=== PATIENT | male | born 1965 | race Caucasian/White ===

== ENCOUNTER 2022-11-12 14:14 | Outpatient (CLI) | payer OTHER, SELFPAY ==
--- NOTE | ~2022-11-12 | US_ITS ---
US arterial ankle brachial ind INDICATION: Bilateral atherosclerosis. TECHNIQUE: Segmental pressures and plethysmographic and Doppler waveforms of the brachial and lower e xtremity arteries were obtained. COMPARISON: None. FINDINGS: Right and left brachial artery pressures of 143 mm Hg and 139 mm Hg, respectively, are concordant (no rmal difference <= 30 mmHg). The right ankle-brachial index (TWILA) is 1.29 (normal >= 0.9-1.0). The right great toe-brachial index (TBI) is 0.83 (normal >= 0.60). The left TWILA is 1.21. The left TBI is 1.2. IMPRESSION: 1. Normal bilateral ankle-brachial indices. Reviewed, dictated and finalized at location [facility].
== END 2022-11-12 14:15 | disposition home or self-care (01) ==
PROVIDERS: PCP Physician Assistant
DX: I70.203 Unspecified atherosclerosis of native arteries of extremities, bilateral legs (principal)
CPT/HCPCS: 93922

== ENCOUNTER 2022-12-02 15:38 | Outpatient (CLI) | payer OTHER, SELFPAY ==
--- NOTE | ~2022-12-02 | XR_ITS ---
Left Shoulder Technique: AP and scapular Y views were obtained. Clinical History: Pain Findings: No fracture or dislocation is seen. Osseous alignment is anatomic. The glenohumeral and acr omioclavicular joint spaces are preserved. Soft tissues are unremarkable. Impression: Unremarkable left shoulder radiographs. Reviewed, dictated and finalized at [facility]. Impression: Unremarkable left shoulder radiographs.
== END 2022-12-02 15:39 | disposition home or self-care (01) ==
LOC: ANHIMG 15:41
PROVIDERS: PCP Physician Assistant; Visit Provider Physician Assistant
DX: M25.512 Pain in left shoulder (principal)
CPT/HCPCS: 73030

== ENCOUNTER 2023-12-11 10:11 | Emergency (ER) | payer OTHER, SELFPAY ==
[2023-12-11 10:18] VITALS: BP 155/88; PULSE 80; RESP 16; TEMP 37.3; O2SAT 98
--- NOTE | 2023-12-11 10:22 | ED.EAR ---
HPI - Ear Problem General Chief complaint: Ear Stated complaint: Ears Irritation Time Seen by Provider: 12/11/23 10:20 Source: patient, RN notes reviewed and old records reviewed Mode of arrival: ambulatory Limitations: no limitations History of Present Illness HPI Narrative: 58-year-old male presents to the [facility] requesting to have his ears cleaned out. Reports decreased hearing. Worse on the left than the right. States that he has been using Q-tips and trying to pull the stuff out. Related Data Home Medications Medication Instructions Recorded Confirmed allopurinol 300 mg tablet mg 12/11/23 amitriptyline 25 mg tablet mg 12/11/23 amlodipine 10 mg tablet mg 12/11/23 12/11/23 aspirin 81 mg tablet,delayed mg 12/11/23 release carvedilol 6.25 mg tablet mg 12/11/23 cetirizine 10 mg tablet mg 12/11/23 epinephrine 0.3 mg/0.3 mL 12/11/23 injection, auto-injector famotidine 20 mg tablet mg 12/11/23 gabapentin 300 mg capsule mg 12/11/23 hydralazine 25 mg tablet mg 12/11/23 ibuprofen 600 mg tablet mg 12/11/23 losartan 100 mg tablet mg 12/11/23 metformin 500 mg tablet mg 12/11/23 pravastatin 80 mg tablet mg 12/11/23 Allergies Allergy/AdvReac Type Severity Reaction Status Date / Time bee venom protein (honey bee) Allergy Severe Anaphylaxis Verified 12/11/23 10:29 [bees] Review of Systems Review of Systems: All systems reviewed & are unremarkable except as noted in HPI and below Constitutional: Constitutional: Reports no additional constitutional complaints Eyes: Eyes: Reports no additional eye complaints ENT: Reports as per HPI Cardiovascular: Cardiovascular: Reports no additional cardiovascular complaints, Denies chest pain and Denies dyspnea Respiratory: Respiratory: Reports no additional respiratory complaints, Denies chest congestion, Denies cough and Denies dyspnea Gastrointestinal: Gastrointestinal: Reports no additional gastrointestinal complaints, Denies abdominal pain, Denies nausea and Denies vomiting Musculoskeletal: Musculoskeletal: Reports no additional musculoskeletal complaints Integumentary/Breasts: Skin/Breast: Reports system reviewed and no additional complaints, except as docu Neurologic: Reports system reviewed and no additional complaints, except as documented Psychiatric: Psychiatric: Reports no additional psychiatric complaints Allergic/Immunologic: Allergic/Immunologic: Reports no additional allergic/immunologic complaints PMFSH Comments At the time of my signature, I reviewed and agree with the nursing past medical, surgical, social, and family history. There is no relevant family history pertinent to the patient complaint. Exam Const: General: cooperative, comfortable, no acute distress, well developed, alert and well nourished Nutritional Appearance: well nourished Orientation/consciousness: patient oriented x3 Limitations: no limitations HENMT: Head: normal to inspection Ears: hearing grossly normal bilaterally, external ears normal and Abnormal EAC present cerumen impaction bilateral Face/Nose/Sinus: Normal external nose present, Normal nares present, Normal nasal mucous membranes and turbinates present, normal facial exam and face symmetric Face and sinus: normal facial exam and face symmetric Eyes: General: appearance normal, both eyes and all related structures Alignment and Position: alignment normal Periorbital: periorbital findings normal Neck: Neck: normal visual inspection, full ROM, no lymphadenopathy and no meningeal signs Chest: Chest palpation & inspection: normal inspection of the chest Resp: Effort & Inspection: normal respiratory effort and able to speak in complete sentences Auscultation: clear to auscultation bilaterally, no crackles, no rales, no rhonchi and no wheezes Cardio: Rate: regular rate Rhythm: regular rhythm Skin: General skin exam: normal color and no rashes or lesions noted Lesions: no lesions Rashes: no rashes
[2023-12-11 10:29] VITALS: BP 155/88; PULSE 80; RESP 16; TEMP 37.3; O2SAT 98
--- NOTE | 2023-12-11 10:30 | PC.NURSE ---
STREET AND BUILDING DECORATOR CALLED OUT FOR HELP WHILE IN WITH PT FOR EAR IRRIGATION. STREET AND BUILDING DECORATOR STATES THAT PT BECAME CLAMMY & C/O DIZZINESS PRIOR TO PASSING OUT IN CHAIR WITH STREET AND BUILDING DECORATOR AT SIDE. PT A&O WITHIN 30 SECONDS, VITALS & FSBG CHECKED AND WNL. EAR IRRIGATION NOT CONTINUED. PT SISTER AT , VERBALIZED UNDERSTANDING TO PUSH CALL LIGHT FOR ANY CONCERNS.
[2023-12-11 10:33] VITALS: BP 139/86; PULSE 80; RESP 16; O2SAT 96
[2023-12-11 10:34] LABS: Glucose Point of Care 103 mg/dl (65-105)
== END 2023-12-11 10:42 | disposition home or self-care (01) ==
PROVIDERS: Emergency Provider Nurse Practitioner; PCP Physician Assistant
DX: H61.23 Impacted cerumen, bilateral (principal); R55 Syncope and collapse; E78.00 Pure hypercholesterolemia, unspecified; I10 Essential (primary) hypertension; E11.40 Type 2 diabetes mellitus with diabetic neuropathy, unspecified
CPT/HCPCS: 82948; 99212; G0463

== ENCOUNTER 2024-06-06 13:51 | Outpatient (CLI) | payer OTHER, SELFPAY ==
--- OUTSIDE RECORDS SUMMARY | 2024-06-06 15:37 | XMS_ITS | Clinical Summary ---
Author Organization [facility] Address [facility] [place] [address] Care Team Providers Care [employer] Worker Foreman Name Role Phone Sarah Penn MD Unavailable [phone] Vielka Abernathy PA-C Primary Care Provider [phone] Allergies Active Allergy Reactions Criticality Noted Date Comments Bee Venom Anaphylaxis High 02/23/2017 Medications allopurinol 300 MG tablet Take 1 tablet by mouth daily. 08/12/2012 Active amlodipine 10 MG tablet Take 1 tablet by mouth daily. 08/12/2012 Active aspirin EC 325 MG EC tablet Take 1 tablet by mouth daily. 08/12/2012 Active losartan 100 MG tablet Take 1 tablet by mouth daily. 08/12/2012 Active metFORMIN 500 MG tablet Take 1 tablet by mouth daily. 08/12/2012 Active cetirizine 10 MG tablet Take 1 tablet (10 mg total) by mouth daily. 02/24/2017 Active Cholecalciferol (KP VITAMIN D) 1000 UNITS capsule Take 1 capsule (1,000 Units total) by mouth daily. 02/24/2017 Active gabapentin 300 MG capsule Take 1 capsule (300 mg total) by mouth 3 (three) times daily. 02/24/2017 Active pravastatin 40 MG tablet Take 1 tablet (40 mg total) by mouth daily. 02/24/2017 Active Multiple Vitamins-Minera ls (CENTRUM) Tab Take 1 tablet by mouth daily. 02/24/2017 Active omega-3 fatty acid 1000 MG capsule Take 1 capsule (1,000 mg total) by mouth daily. VERIFY DOSE 02/24/2017 Active hydrALAZINE 25 MG tablet Take 1 tablet (25 mg total) by mouth 2 (two) times daily. 02/24/2017 Active ibuprofen 400 MG tablet Take 400 mg by mouth nightly at bedtime. 02/24/2017 Active carvedilol 6.25 MG tablet Take 1 tablet (6.25 mg total) by mouth 2 (two) times daily. 60 tablet 6 02/16/2018 Active amitriptyline 25 MG tablet Take 1 tablet by mouth nightly at bedtime. 05/12/2018 Active Ferrous Sulfate (IRON) 325 (65 Fe) MG tablet Take 325 mg by mouth daily with breakfast. Active Garlic 1000 MG capsule Take 1,000 mg by mouth daily. Active EPINEPHrine 0.3 MG/0.3ML injection as needed. 09/14/2019 Active Active Problems Problem Noted Date Diagnosed Date Class 3 severe obesity with body mass index (BMI) of 40.0 to 44.9 in adult 07/24/2017 Precordial chest pain 02/24/2017 Mixed hyperlipidemia 02/24/2017 Essential hypertension 02/24/2017 Type 2 diabetes mellitus wit hout complication ([facility]) 02/24/2017 Vasovagal syncope 02/23/2017 Resolved Problems Problem Noted Date Diagnosed Date Resolved Date Abnormal stress test 03/02/2017 018 Family History Medical History Relation Comments Diabetes Brother Hypertension Brother Valve Disease Brother atrial fibrillation Brother Alcohol Abuse Father Diabetes Father Hypertension Father Kidney Disease Father on dialysis Diabetes Maternal Grandmother Hypertension Maternal Grandmother Heart Attack Mother Hypertension Mother Stent Cardiac Mother Relation Status Comments Brother (Age 60) Father (Age 50) Maternal Grandfather Maternal Grandmother Mother Paternal Grandfather Paternal Grandmother Sister 1 Alive Sister 2 Alive Social History Tobacco Use Types Packs/Day Years Used Date Smoking Tobacco: Every Day Cigarettes Smokeless Tobacco: Never Comments:pack will last 4 wk s. Alcohol Use Standard Drinks/Week Comments No 0 (1 standard drink = 0.6 oz pur e alcohol) Sex and Gender Information Value Date Recorded Sex Assigned at Not on file Legal Sex Male 3:02 AM CDT Gender Identity Not on file Sexual Orientation Not on file Occupation Industry Job Start Date Job End Date Not on file Not on file Not on file Not on file Last Filed Vital Signs Vital Sign Reading Time Taken Comments Blood Pressure 156/90 09/21/2019 1:20 PM CDT Pulse 70 09/21/2019 1:16 PM CDT reg Temperature - - Respiratory Rate - - Oxygen Saturation 96% 09/21/2019 12:52 PM CDT Inhaled Oxygen Concentration - - Weight 106.1 kg (234 lb) 09/21/2019 12:52 PM CDT Height 162.6 cm (5' 4 ) 09/21/2019 12:52 PM CDT Body Mass Index 40.17 09/21/2019 12:52 PM CDT Plan of Treatment Health Maintenance Due Date Last Done Comments Colorectal Cancer Screening Colonoscopy (10 Years) 1965 Kidney Health Evaluation 1965 Annual Physical 05/19/1966 Pneumococcal Vaccine: Pediatrics (0 to 5 Years) and At-Risk Patients (6 to 64 Years) (1 of 2 - PCV) 05/19/1969 Diabetes: Retinopathy Eye Exam 05/19/1981 Hepatitis C 05/19/1981 DTaP, Tdap and Td Vaccines (1 - Tdap) 05/19/1982 Zoster Vaccines (1 of 2) 05/19/2013 Hemoglobin A1C 08/07/2019 02/06/2019, 08/21, 08/27/2017, Additional history exists Lipid Panel 09/09/2019 09/08/2018, 060 10/2017, 08/25/2016, Additional history exists COVID-19 Vaccine ( - 2023- season) 2023 Influenza Adult (#1) 2023 RSV Immunization or 60+ Years (1 - 1-dose 75+ series) 05/19/2038 Meningococcal B Vaccine Aged Out No l onger eligible based on patient's age to complete this topic Meningococcal Vaccine Aged Out No yosi reynaldo eligible based on patient's age to complete this topic RSV Immunizations Under 20 Months Aged Out No longer eligible based on patient's age to complete this topic Procedures Procedure Name Priority Date/Time Associated Diagnosis Comments HEMOGLOBIN, GLYCOSYLATED Routine 02/06/2019 LIPID PANEL Routine 09/08/2018 from Last 3 Months or Most Recently Relevant to Health Maintenance Results * HEMOGLOBIN, GLYCOSYLATED (02/06/2019) HGB A1C 5.8 02/06/2019 [facility] Final Result * LIPID PANEL (09/08/2018) CHOLESTEROL 168 HDL 49 TRIGLYCERIDES 197 LDL (CALCULATED) 80 VLDL CALCULATION 39 09/08/2018 [facility] Final Result from Last 3 Months or Most Recently Relevant to Health Maintenance Insurance [employer] Care Teams Automotive Worker Foreman Relationship Specialty Start Date End Date Vielka Abernathy PA-C [address] [place] [id number] PCP - General NURSE PRACTITIONER 03/09/19 Sarah Penn MD [facility]. [facility] [address] [place] [address] [facility] [employer] Specialist CARDIOVASCULAR DISEASE 02/09/17
--- OUTSIDE RECORDS SUMMARY | 2024-06-06 15:37 | XMS_ITS | Data Portability ---
Author Organization GE RITAAmy Zhao Address [address] [place] [address] Care Team Providers Care Product Transfer Pumper Name Role Phone CHRIST ROJAS Primary Care Provider Assessment Encounter Date Assessment Date Assessment LastModified by Organization Details LastModified Time 03/02/2024 03/02/2024 follow up in 6 months Not available 03/02/2024 10:04:30 Plan of Treatment Reminders Order Date Submit Date Provider Last Modified By Organization Details Last Modified Time Details Appointments ANY 30 2024 08:30A M NILA CABRERA Not available Not available Not available Lab uric acid, serum or plasma 2023 024 MORENA KUHN, [facility] [address], [address], [place], [address], 03/03/2024 00:08:46 CMP, serum or plasma 2023 024 [facility] KUHN, [facility], [address], [place], [address], 03/03/2024 00:08:45 lipid panel, serum 2023 024 MORENA KUHN, [facility], [address], [place], [address], 03/03/2024 00:08:44 albumin/c reatinine , mass ratio, urine 2023 024 MORENA KUHN, [address] [facility] [address], [address], [place], [address], 03/03/2024 10:17:34 HbA1c (hemoglob in A1c), blood 2023 024 [facility], [address] [facility], [address], [place], [address], 03/03/2024 10:17:35 CMP, serum or plasma 2023 024 [facility], [address] [facility] [address], [address], [place], [address], 11/01/2023 22:07:[address] referral [address] (Audiology), [address] [place] [address], [address], 05/11/2024 08:15:13 Procedures None recorded. Surgeries None recorded. Imaging None recorded. Medication Orders Debrox 6.5 % ear drops [address], [address], [place], [place], [id number], 03/02/2024 10:02:23 Patient TargetsNo targets recorded. Patient Instructions Encounter Date Encounter Id Patient Instructions Last Modified By Organization Details Last Modified Time 12/09/2023 [id number] hammer toe: care instructions fharry Not available 12/09/2023 10:30:11 athlete's foot: care instructions fharry Not available 12/09/2023 10:30:11 04/26/2024 [id number] A healthy lifestyle: care instructions Not available 04/27/2024 09:51:20 Reason for Referral [employer] Referral for Hea ring loss Referring Physician: Christ Rojas, Retail Pharmacy Merchandiser, Encounter Date: 04/26/2024 Results Created Date Observation Date Name Description Value Unit Range Abnormal Flag Note LastModifiedBy Organization Detail LastModifiedTime 11/01/19 24 11/01/2023 COMP. METAB OLIC PANEL (14) glucose 120 mg/dL 70-99 above high normal Not Available [facility] [address] [place] [address], [address], 11/01/2023 22:07:42 11/01/19 24 11/01/2023 COMP. METAB OLIC PANEL (14) BUN 8 mg/dL 8-27 Not Available [facility] Department [address] [place] [address], [address], 11/01/2023 22:07:42 11/01/19 24 11/01/2023 COMP. METAB OLIC PANEL (14) creatinine 0.80 mg/dL 0.76-1 .27 Not Available [facility] Department [address] [place] [address], [address], 11/01/2023 22:07:42 11/01/19 24 11/01/2023 COMP. METAB OLIC PANEL (14) eGFR 101 >=60 Units for eGFR value s are mL/mi n/1.7 3 The eGFR Calcu latio n has not been valid ated for patie nts under the age of 18. If test resul ts are displ ayed for a patie nt under the age of 18, disre annie that value . Not Available [facility] Department [address] [place] [address], [address], 11/01/2023 22:07:42 11/01/19 24 11/01/2023 COMP. METAB OLIC PANEL (14) BUN/creatini ne ratio 10 10-24 Not Available [facility] Department [address] [place] [address], [id number], 11/01/2023 22:07:42 11/01/19 24 11/01/2023 COMP. METAB OLIC PANEL (14) sodium 138 mmol/ L 134-14 4 Not Available [facility] Department [address] [place] [address], [address], 11/01/2023 22:07:42 11/01/19 24 11/01/2023 COMP. METAB OLIC PANEL (14) potassium 4.3 mmol/ L 3.5-5. 2 Not Available [facility] [address] [place], [address], 11/01/2023 22:07:42 11/01/19 24 11/01/2023 COMP. METAB OLIC PANEL (14) chloride 102 mmol/ L 96-106 Not Available [facility] [address] [place], [address], 11/01/2023 22:07:42 11/01/19 24 11/01/2023 COMP. METAB OLIC PANEL (14) carbon dioxide, total 22 mmol/ L 20-29 Not Available [facility] [address] [place], [address], 11/01/2023 22:07:42 11/01/19 24 11/01/2023 COMP. METAB OLIC PANEL (14) calcium 9.4 mg/dL 8.6-10 .2 Not Available [facility] [address] [place], [address], 11/01/2023 22:07:42 11/01/19 24 11/01/2023 COMP. METAB OLIC PANEL (14) protein, total 7.3 g/dL 6.0-8. 5 Not Available [facility] [address] [place], [address], 11/01/2023 22:07:42 11/01/19 24 11/01/2023 COMP. METAB OLIC PANEL (14) albumin 4.5 g/dL 3.8-4. 9 Not Available [facility] [address] [place], [address], 11/01/2023 22:07:42 11/01/19 24 11/01/2023 COMP. METAB OLIC PANEL (14) globulin, total 2.8 g/dL 1.5-4. 5 Not Available [facility] [address] [place], [address], 11/01/2023 22:07:42 11/01/19 24 11/01/2023 COMP. METAB OLIC PANEL (14) A/G ratio 2.0 1.2-2. 2 Not Available [facility] [address] [place], [address], 11/01/2023 22:07:42 11/01/19 24 11/01/2023 COMP. METAB OLIC PANEL (14) bilirubin, total 0.3 mg/dL 0.0-1. 2 Not Available [facility] [address] [place], [address], 11/01/2023 22:07:42 11/01/19 24 11/01/2023 COMP. METAB OLIC PANEL (14) alkaline phosphatase 100 IU/L 44-121 Not Available [facility] Department [address] [place], [address], 11/01/2023 22:07:42 11/01/19 24 11/01/2023 COMP. METAB OLIC PANEL (14) AST (SGOT) 32 IU/L 0-40 Not Available [facility] Department [address] [place], [address], 11/01/2023 22:07:42 11/01/19 24 11/01/2023 COMP. METAB OLIC PANEL (14) ALT (SGPT) 48 IU/L 0-44 above high normal Not Available [facility] [address] [place], [address], 11/01/2023 22:07:42 03/02/20 24 03/02/2024 LIPID PANEL cholesterol, total 179 mg/dL 100-19 9 Not Available [facility] [address] [place] [address], [address], 03/03/2024 00:08:44 03/02/20 24 03/02/2024 LIPID PANEL triglyceride s 268 mg/dL 0-149 above high normal Not Available [facility] Department [address] [place] [address], [address], 03/03/2024 00:08:44 03/02/20 24 03/02/2024 LIPID PANEL HDL cholesterol 44 mg/dL 40-999 Not Available [facility] Department [address] [place] [address], [address], 03/03/2024 00:08:44 03/02/20 24 03/02/2024 LIPID PANEL VLDL cholesterol damion 54 mg/dL 5-40 above high normal Not Available [facility] Department [address] [place] [address], [address], 03/03/2024 00:08:44 03/02/20 24 03/02/2024 LIPID PANEL LDL chol calc (nih) 122 mg/dL 0-99 above high normal Not Available [facility] Department [address] [place] [address], [address], 03/03/2024 00:08:44 03/02/20 24 03/02/2024 COMP. METAB OLIC PANEL (14) glucose 150 mg/dL 70-99 above high normal Not Available [facility] [address] [place] [address], [address], 03/03/2024 00:08:45 03/02/20 24 03/02/2024 COMP. METAB OLIC PANEL (14) BUN 10 mg/dL 8-27 Not Available [facility] [address] [place] [address], [address], 03/03/2024 00:08:45 03/02/20 24 03/02/2024 COMP. METAB OLIC PANEL (14) creatinine 0.80 mg/dL 0.76-1 .27 Not Available [facility] [address] [place] [address], [address], 03/03/2024 00:08:45 03/02/20 24 03/02/2024 COMP. METAB OLIC PANEL (14) eGFR 101 >=60 Units for eGFR value s are mL/mi n/1.7 3 The eGFR Calcu latio n has not been valid ated for patie nts under the age of 18. If test resul ts are displ ayed for a patie nt under the age of 18, disre annie that value . Not Available [facility] [address] [place] [address], [address], 03/03/2024 00:08:45 03/02/20 24 03/02/2024 COMP. METAB OLIC PANEL (14) BUN/creatini ne ratio 13 01-12 Not Available [facility] Department [address] [place] [address], [address], 03/03/2024 00:08:45 03/02/20 24 03/02/2024 COMP. METAB OLIC PANEL (14) sodium 138 mmol/ L 134-14 4 Not Available [facility] [address] [place] [address], [address], 03/03/2024 00:08:45 03/02/20 24 03/02/2024 COMP. METAB OLIC PANEL (14) potassium 4.3 mmol/ L 3.5-5. 2 Not Available [facility] [address] [place] [address], [address], 03/03/2024 00:08:45 03/02/20 24 03/02/2024 COMP. METAB OLIC PANEL (14) chloride 104 mmol/ L 96-106 Not Available [facility] [address] [place] [address], [address], 03/03/2024 00:08:45 03/02/20 24 03/02/2024 COMP. METAB OLIC PANEL (14) carbon dioxide, total 23 mmol/ L 20-29 Not Available [facility] [address] [place] [address], [address], 03/03/2024 00:08:45 03/02/20 24 03/02/2024 COMP. METAB OLIC PANEL (14) calcium 9.6 mg/dL 8.6-10 .2 Not Available [facility] [address] [place], [address], 03/03/2024 00:08:45 03/02/20 24 03/02/2024 COMP. METAB OLIC PANEL (14) protein, total 7.6 g/dL 6.0-8. 5 Not Available [facility] [address] [place], [address], 03/03/2024 00:08:45 03/02/20 24 03/02/2024 COMP. METAB OLIC PANEL (14) albumin 4.6 g/dL 3.8-4. 9 Not Available [facility] [address] [place], [address], 03/03/2024 00:08:45 03/02/20 24 03/02/2024 COMP. METAB OLIC PANEL (14) globulin, total 3.0 g/dL 1.5-4. 5 Not Available [facility] [address] [place], [address], 03/03/2024 00:08:45 03/02/20 24 03/02/2024 COMP. METAB OLIC PANEL (14) A/G ratio 2.0 1.2-2. 2 Not Available [facility] [address] [place], [address], 03/03/2024 00:08:45 03/02/20 24 03/02/2024 COMP. METAB OLIC PANEL (14) bilirubin, total 0.3 mg/dL 0.0-1. 2 Not Available [facility] [address] [place], [address], 03/03/2024 00:08:45 03/02/20 24 03/02/2024 COMP. METAB OLIC PANEL (14) alkaline phosphatase 101 IU/L 44-121 Not Available [facility] Department [address] [place], [address], 03/03/2024 00:08:45 03/02/20 24 03/02/2024 COMP. METAB OLIC PANEL (14) AST (SGOT) 21 IU/L 0-40 Not Available [facility] Department [address] [place], [address], 03/03/2024 00:08:45 03/02/20 24 03/02/2024 COMP. METAB OLIC PANEL (14) ALT (SGPT) 28 IU/L 0-44 Not Available [facility] Department [address] [place], [address], 03/03/2024 00:08:45 03/02/20 24 03/02/2024 URIC ACID uric acid 4.1 mg/dL 3.7-8. 6 Not Available [facility] Department [address] [place], [address], 03/03/2024 00:08:46 03/02/20 24 03/03/2024 ALBUM IN/CR EATIN INE RATIO ,URIN E creatinine, urine 18.9 mg/dL notest ab. Not Available [facility] ([facility]) [address] [place], [address], 03/03/2024 10:17:34 03/02/20 24 03/03/2024 ALBUM IN/CR EATIN INE RATIO ,URIN E albumin, urine <3.0 ug/mL notest ab. Not Available [facility] ([facility]) [address] [place], [address], 03/03/2024 10:17:34 03/02/20 24 03/03/2024 ALBUM IN/CR EATIN INE RATIO ,URIN E alb/creat ratio <16 Mishel l: 0 - 29 Moder ately incre ased: 30 - 300 Sever mimi incre ased: >300 Not Available [facility] ([facility]) [address] [facility], [place], [address], 03/03/2024 10:17:34 03/02/20 24 03/03/2024 HEMOG LOBIN A1C hemoglobin A1C 6.9 % 4.8-5. 6 above high normal Predi abete s: 5.7 - 6.4 Diabe oliverio: >6.4 Glyce keke contr ol for adult s with diabe oliverio: <7.0 Not Available [facility] ([facility]) [address] [facility], [place], [address], 03/03/2024 10:17:35 Result Notes None recorded. 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 Rupali Dumas PA-C Attn: Accounting ,[address] [facility], [place], [address] , [facility] 13:25:58 Pain of left shoulder joint 69164569125 306535 Active 2016 Rupali Dumas PA-C Attn: Accounting ,[address] [facility], [place], [address] , [facility] 13:26:12 Dizziness 819695634 Active 2016 Rupali Dumas PA-C Attn: Accounting ,[address] [facility], [place], [address] , [facility] 13:26:32 Insomnia 198126200 Active 2017 Rupali Dumas PA-C Attn: Accounting ,[address] [facility], [place], [address] , [facility] 8 13:57:39 Body mass index 30+ - obesity 729644107 Active 2017 Rupali Dumas PA-C Attn: Accounting ,[address] [facility], [place], [address] , [facility] 8 13:59:13 Bereaveme nt 11759496 Active 2017 Rupali Dumas PA-C Attn: Accounting ,[address] [facility], [place], [place], [address] [place] [address] , [place] [facility] 8 14:22:02 Obesity 157510523 Completed 08/26/2017 Rupali Dumas PA-C Attn: Accounting ,[address] [facility], [place], [place], [address] [place] [address] , [place] [facility] 8 13:59:21 Osteoarth ritis 336334413 Active Kia Cosme [place] null, [place] [facility] 6 11:18:22 Essential hypertens ion 44462742 Active Rupali Dumas PA-C Attn: Accounting ,[address] [facility], [place], [place], [address] [place] [address] , [place] [facility] 6 11:27:14 Gout 99596188 Active Rupali Dumas PA-C Attn: Accounting ,[address] [facility], [place], [place], [address] [place] [address] , [place] [facility] 6 11:27:14 Hyperlipi demia 20430204 Active Rupali Dumas PA-C Attn: Accounting ,[address] [facility], [place], [place], [address] [place] [address] , [place] [facility] 6 11:27:14 Tobacco user 352355062 Active Kia Cosme [place], [place] [facility] 6 11:18:22 Disorder of nervous system due to type 2 diabetes mellitus 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 Active Rupali Dumas PA-C Attn: Accounting ,[address] [facility], [place], [place], [address] [place] [address] , [place] [facility] 6 11:27:14 Depressiv e disorder 00494647 Active Kia Cos[place], [place] [facility] 6 11:18:22 Allergic rhinitis 59504005 Active Rupali Dumas PA-C Attn: Accounting ,[address] [facility], [place], [place], [address] [place] [address] , [place] [facility] 6 11:27:14 Gastroeso phageal reflux disease 461356268 Active Rupali Dumas PA-C Attn: Accounting ,[address] [facility], [place], [address] , [place] [facility] 6 11:27:14 Type 2 diabetes mellitus 93822765 Active 2018 Gareth Morrissey MD Attn: Accounting ,[address] [facility], [place], [address] , [place] [facility] 9 12:45:51 Screening for malignant neoplasm of prostate Completed 201802/07/2019 NILA CABRERA Attn: Accounting ,[address] [facility], [place], [address] , [place] [facility] 9 15:16:22 Fatigue 64277387 Active 2018 Gareth Morrissey MD Attn: Accounting ,[address] [facility], [place], [address] , [place] [facility] 9 13:09:22 Anemia 857923165 Active 2018 Gareth Morrissey MD Attn: Accounting ,[address] [facility], [place], [address] , [place] [facility] 9 15:57:07 Morbid obesity 731265681 Active 2021 NILA CABRERA Attn: Accounting ,[address] [facility], [place], [address] , [place] [facility] 2 15:35:06 Edentulou s 423966025 Active 2021 NILA CABRERA Attn: Accounting ,[address] [facility], [place], [address] , [place] [facility] 2 15:35:09 Neuropath y due to diabetes mellitus 401713768 Active 2022 NILA CABRERA Attn: Accounting ,[address] [facility], [place], [address] , [place] [facility] 3 15:31:56 Ingrowing nail 032392343 Active 2022 NILA CABRERA Attn: Accounting ,[address] [place], [address] , [place] [facility] 3 15:31:58 Foot callus 503200312 Active 2022 NILA CABRERA Attn: Accounting ,[address] [place], [address] , [place] [facility] 3 15:32:20 Smoker 00088956 Active 2023 NILA CABRERA Attn: Accounting ,[address] [place], [address] , [place] [facility] 4 13:46:25 Shoulder pain 80504040 Active Rupali Dumas PA-C Attn: Accounting ,[address] [place], [address] , [place] [facility] 6 11:27:14 Allergic reaction to wasp sting 837282173 Active Kia [place] [facility] [place] 11:18:22 Rotator cuff syndrome 0864304 Active [place] [facility] [place] 11:18:22 Inflammat ion of rotator cuff tendon 325439986 Active Kia [place] [facility] 6 11:18:22 Osteoarth ritis of acromiocl avicular joint 219302982 Active Kia Cos[place], [place] [facility] 6 11:18:22 Lateral epicondyl itis 469805607 Completed 02/07/2019 NILA CABRERA Attn: Accounting ,[address] [place], [address] , [place] [facility] 9 15:15:41 Problem Notes None recorded. Procedures Surgical History Date Name Laterality Status Provider Name and Address Organization Details Recorded Time 5 Cerumen Removal completed NILA CABRERA Attn: Accounting, [place], [address], [place] [facility] 04/27/2024 09:50:57 4 Routine Foot Care completed CLAUDE ALFARO, DPM [address], [place], [address], [place] [facility] 12/09/2023 10:29:59 4 Routine Foot Care completed CLAUDE ALFARO, DPM [address], [place], [address], [place] [facility] 08/30/2023 16:48:39 4 Routine Foot Care completed CLAUDE ALFARO, DPM [address], [place], [address], [place] [facility] 05/03/2023 14:15:04 3 Routine Foot Care completed CLAUDE ALFARO DPM [address], [place], [address], [place] [facility] 02/01/2023 12:48:46 3 Routine Foot Care completed CLAUDE ALFARO, DPM [address], [place], [address], [place] [facility] 08/31/2022 13:13:45 3 Routine Foot Care completed CLAUDE ALFARO, DPM [address], [place], [address], [place] [facility] 04/29/2022 12:44:40 2 Routine Foot Care completed [place] Mandi DPM [address], [place], [address], [place] [facility] 11/11/2021 14:37:08 2 Routine Foot Care completed Walker Mandi DPM [address], [place], [address], [place] [facility] 07/15/2021 15:29:39 1 Routine Foot Care completed Walker Mandi DPM [address], [place], [address], [place] [facility] 02/27/2021 14:28:40 1 Routine Foot Care completed [place] Mandi DPM [address], [place], [address], [facility] 11/28/2020 11:47:00 1 Routine Foot Care completed Walker Mandi DPM [address], [place], [address], [place] [facility] 04/23/2020 12:20:36 0 Routine Foot Care completed [place] Mandi DPM [address], [place], [address], [place] [facility] 09/28/2019 14:26:41 9 Routine Foot Care completed Walker Mandi DPM [address], [place], [address], [facility] 12/15/2018 15:17:58 9 Routine Foot Care completed Walker Mandi DPM [address], [place], [address], [facility] 09/13/2018 15:16:06 9 Routine Foot Care completed Walker Mandi DPM [address], [place], [address], [facility] 06/09/2018 11:55:55 8 Routine Foot Care completed Walker Mandi DPM [address], [place], [address], [facility] 03/10/2018 15:38:20 Imaging Results None recorded. Procedure Notes None recorded. Medical Equipment None Reported. Allergies Allergen ID Allergen Name Allergen Category Reaction Reaction Severity Criticality Documentation Date Start Date Code Code System Note Provider Name and Address Organization Details Recorded Time 03660 honey bee venom medicatio n anaphylax is Not available Not available 10/06/2016 73992 7 RxNorm Not Available Not Available Not Available Medications Name Sig Start Date Stop Date Status Note LastModified by Organization Details LastModified Time metformin 500 mg tablet TAKE 1 TABLET BY MOUTH DAILY WITH FOOD active Not Available Not Available No t Available carvedilol 6.25 mg tablet Take 1 tablet twice a day by oral route for 30 days. active Not Available Not Available No t Available omega-3 fatty acids 1,000 mg capsule Take 1 capsule every day by oral route. 2018 active otc Not Available Not Available Not Avai lable trazodone 50 mg tablet Take 1 tablet every day by oral route at bedtime. 10/06 completed Not Available Not Available Not Available cetirizine 10 mg tablet TAKE 1 TABLET BY MOUTH ONCE DAILY active Not Available Not Available No t Available aspirin 325 mg tablet Take 1 tablet every day by oral route. active OTC Not Available Not Available No t Available pravastatin 40 mg tablet TAKE 1 TABLET BY MOUTH AT BEDTIME 07/28 completed Not Available Not Available Not Available ibuprofen 800 mg tablet TAKE 1 TABLET (800MG) BY ORAL ROUTE EVERY NIGHT NEEDED FOR PAIN 02/08 completed Not Available Not Available Not Available Debrox 6.5 % ear drops INSTILL 5 DROPS INTO AFFECTED EAR(S) BY OTIC ROUTE 2 TIMES PER DAY 2024 active Not Available Not Available Not Avai lable hydralazine 25 mg tablet Take 1 tablet twice a day by oral route for 30 days. active Not Available Not Available No t Available aspirin 81 mg tablet,elena yed release Take 1 tablet every day by oral route for 90 days. active Not Available Not Available No t Available carvedilol 3.125 mg tablet 1 PO BID with meals 02/24 completed Not Available Not Available Not Available famotidine 20 mg tablet Take 1 tablet twice a day by oral route as needed for 90 days. 2024 active Not Available Not Available Not Avai lable pravastatin 80 mg tablet Take 1 tablet every day by oral route. active Not Available Not Available No t Available amitriptyli ne 25 mg tablet TAKE 1 TABLET BY MOUTH EVERY NIGHT AT BEDTIME NEEDED 2024 active Not Available Not Available Not Avai lable amlodipine 10 mg tablet TAKE 1 TABLET BY MOUTH DAILY active Not Available Not Available No t Available ranitidine 150 mg tablet TAKE 1 TABLET BY MOUTH TWICE A DAY 04/23 completed Not Available Not Available Not Available gabapentin 300 mg capsule Take 1 capsule 3 times a day by oral route for 30 days. active Not Available Not Available No t Available sertraline 25 mg tablet Take 1 tablet(s) every day by oral route for 30 days. 02/04 completed Not Available Not Available Not Available allopurinol 300 mg tablet TAKE 1 TABLET BY MOUTH DAILY WITH MEALS 2024 active Not Available Not Available Not Avai lable alcohol swabs USE TO CLEAN SKIN BEFORE TESTING active Not Available Not Available No t Available epinephrine 0.3 mg/0.3 mL injection, auto-inject or TAKE 1 AUTO(S) NEEDED BY INJECTION ROUTE. active Not Available Not Available No t Available ibuprofen 600 mg tablet Take 1 tablet twice a day by oral route as needed. active Not Available Not Available No t Available ketoconazol e 2 % topical cream APPLY TO THE AFFECTED AREA(S) BY TOPICAL ROUTE ONCE DAILY 07/28 completed Not Available Not Available Not Available losartan 100 mg tablet TAKE 1 TABLET BY MOUTH DAILY active Not Available Not Available No t Available clotrimazol e 1 % topical cream 02/23 completed Not Available Not Available Not Available sertraline 50 mg tablet Take 1 tablet every day by oral route for 90 days. 02/04 completed Not Available Not Available Not Available nicotine 7 mg/24 hr daily transdermal patch Apply 1 patch(es) every day by transderm al route for 45 days. 07/28 completed Not Available Not Available Not Available escitalopra m 10 mg tablet Take 1 tablet every day by oral route for 90 days. 03/06 completed Not Available Not Available Not Available Centrum 1 tablet daily active OTC Not Available Not Available No t Available melatonin 5 mg tablet Take 1 tablet every day by oral route for 30 days. 01/01 completed Not Available Not Available Not Available OneTouch Verio test strips Take 1 strip every day by miscell. route for 90 days. active Not Available Not Available No t Available Flintstones Gummies 1 tablet daily 09/13 completed otc Not Available Not Available Not Available OneTouch Ultra Blue Test Strip active Not Available Not Available N ot Available OneTouch Ultra2 Meter active Not Available Not Available Not Available OneTouch Delica Plus Lancet 30 gauge USE TO TEST ONCE DAILY active Not Available Not Available No t Available Fluzone Quad (PF) 60 mcg (15 mcg x 4)/0.5 mL IM syringe 03/02 completed Not Available Not Available Not Available Vitals Date Recorded Body height Body mass index (BMI) Body weight Heart rate Oxygen saturation Oxygen saturation in Arterial blood by Pulse oximetry Systolic blood pressure Diastolic blood pressure Provider Name and Address Organization Details Last Updated DateTime 4 162.56 cm 41 kg/m2 195906. 58 g 84 /min 96 % 96 % 113 mm[Hg] 72 mm[Hg] Irma Mcneil MA [facility] 4 09:21:49 Date Recorded Body height Body mass index (BMI) Body weight Heart rate Body temperature Pain severity - 0-10 verbal numeric rating [Score] - Reported Systolic blood pressure Diastolic blood pressure Provider Name and Address Organization Details Last Updated DateTime 4 162.56 cm 40.9 kg/m2 475370. 98 g 83 /min 97.7 [degF] 0 143 mm[Hg] 87 mm[Hg] Kat Meyer MA [facility] 4 09:55:30 Date Recorded Body height Body mass index (BMI) Body weight Heart rate Oxygen saturation Oxygen saturation in Arterial blood by Pulse oximetry Provider Name and Address Organization Details Last Updated DateTime 4 162.56 cm 40.9 kg/m2 153031. 98 g 89 /min 96 % 96 % Irma Mcneil MA [facility] 4 09:27:28 Date Recorded Systolic blood pressure Diastolic blood pressure Provider Name and Address Organization Details Last Updated DateTime 03/02/2024 138 mm[Hg] 83 mm[Hg] NILA CABRERA Attn: Accounting,[address] [place], [address], [facility] 03/02/2024 10:03:16 Date Recorded Body height Body mass index (BMI) Body weight Heart rate Body temperature Systolic blood pressure Diastolic blood pressure Provider Name and Address Organization Details Last Updated DateTime 5 162.56 cm 40.6 kg/m2 568658. 67 g 77 /min 98.1 [degF] 141 mm[Hg] 87 mm[Hg] Debi aburto MA [facility] 5 10:12:50 Date Recorded Body height Body mass index (BMI) Body weight Heart rate Oxygen saturation Oxygen saturation in Arterial blood by Pulse oximetry Systolic blood pressure Diastolic blood pressure Provider Name and Address Organization Details Last Updated DateTime 5 162.56 cm 40.2 kg/m2 866835. 61 g 76 /min 98 % 98 % 137 mm[Hg] 82 mm[Hg] Irma Mcneil [place] [facility] 5 14:02:31 Social History Question Answer Notes LastModified by Organizat ion Details LastModified Time Tobacco Smoking Status Current Some Day Smoker Irma Mcneil [place] null, [place] [facility] 03/06/2022 14:18:28 What Is Your Level Of Alcohol Consumption? None Quit 15+ Years Ago. Information not available 04/11/2021 What Is Your Level Of Caffeine Consumption? Occasional Information not available 04/24/2014 In The 14 Days Before Symptom Onset, Have You Had Close Contact With A Laboratory-confir med COVID-19 While That Case Was Ill? No Information not available 08/12/2020 In The 14 Days Before Symptom Onset, Have You Had Close Contact With A Person Who Is Under Investigation For COVID-19 While That Person Was Ill? No Information not available 08/12/2020 Have You Been To An Area Known To Be High Risk For COVID-19? No Information not available 08/12/2020 What Type Of Diet Are You Following? REGULAR Information not available 02/23/2017 Which Illicit Or Recreational Drugs Have You Used? None Information not available 09/14/2019 Do You Or Have You Ever Used E-cigarettes Or Vape? Never Used Electronic Cigarettes Information not available 09/14/2019 Hard Of Hearing Or Deaf In One Or Both Ears? No Information not available 02/23/2017 Legally Blind In One Or Both Eyes? No Information no t available 09/14/2019 Live Alone Or With Others? With Others Information not available 04/24/2014 Do You Have A Medical Power Of Gamemaster? No [email or web address] Information not available 07/15/2021 What Was The Date Of Your Most Recent Tobacco Screening? 04/07/2024 Information not available 04/07/2024 At What Age Did You Start Smoking Tobacco? 16 Information not available 07/29/2023 Are You Passively Exposed To Smoke? Yes Information no t available 09/14/2019 Do You Or Have You Ever Used Smokeless Tobacco? Never Used Smokeless Tobacco Information not available 09/14/2019 How Much Tobacco Do You Smoke? 0.25 PPD Information not available 08/12/2020 Do You Use Any Illicit Or Recreational Drugs? Yes Information not available 08/12/2020 On What Date Was Tobacco Cessation Counseling Provided? 04/07/2024 Information not available 04/07/2024 How Many Years Have You Smoked Tobacco? 40 Information not available 09/14/2019 Sex: Male Functional Status Question Answer Note LastModified by Organizat ion Details LastModified Time Are you able to care for yourself? Yes Information not available 04/24/2014 What is your exercise level? Occasional Information not available 02/23/2017 Mental Status None recorded. Family History Relationship Description Onset Age of this Age Resolved Age Notes LastModified by Organization Details LastModified Time Mother Diabetes mellitus [email or web address] Not available 04/29 10:59:54 Mother Hypertensive disorder [email or web address] Not available 04/29 10:59:54 Father Diabetes mellitus [email or web address] Not available 04/29 10:59:54 Father Hypertensive disorder [email or web address] Not available 04/29 10:59:54 Maternal Grandmother Diabetes mellitus [email or web address] Not available 04/29 10:59:54 Maternal Grandmother Hypertensive disorder [email or web address] Not available 04/29 10:59:54 Paternal Grandmother Diabetes mellitus [email or web address] Not available 04/29 10:59:54 Paternal Grandmother Hypertensive disorder [email or web address] Not available 04/29 10:59:54 Medical History Condition Response Coronary Artery Disease N Gout Y Other N Atrial Fibrillation N High Blood Pressure Y Thyroid Problems N Kidney or Bladder Problems N GI Problems N Depression Y COPD N Blood Clots N Skin Problems N Anemia N Heart Attack (MT) N Anxiety Disorder N Diabetes Y Muscle, Joint, or Bone Problems Y Arthritis Y Seizures/Epilepsy N Acid Reflux (GERD) Y Cancer N Stroke N Asthma Y Allergies Y High Cholesterol N Hepatitis N Liver Disease N Headaches N Hypertension Y Heart Failure N Osteoporosis N Immunizations Vaccine Type Date Status Note Provider Nam e and Address Organization Details Recorded Time COVID-19, mRNA, LNP-S, PF, 100 mcg/0.5mL dose or 50 mcg/0.25mL dose 1 completed CHIO Tucker, [place] [facility] 04/25/2024 15:33:27 COVID-19, mRNA, LNP-S, PF, 100 mcg/0.5mL dose or 50 mcg/0.25mL dose 1 completed CHIO [place], [place] [facility] 04/25/2024 15:33:27 Influenza, split virus, trivalent, preservative 5 completed Not Available [facility] 04/08/2019 02:46:07 Influenza, split virus, quadrivalent, preservative 6 completed [facility] Available [facility] 04/08/2019 02:32:57 Influenza, MDCK, quadrivalent, preservative 1 completed CHIO [place], [place] [facility] 04/25/2024 15:33:26 pneumococcal polysaccharide PPV23 7 completed Not Available [facility] 04/08/2019 02:33:52 Influenza, split virus, quadrivalent, preservative 7 completed Not Available [facility] 04/08/2019 02:34:47 Influenza, split virus, quadrivalent, preservative 8 completed Not Available [facility] 04/08/2019 02:46:05 Influenza, split virus, quadrivalent, preservative 9 completed Not Available [facility] 04/08/2019 02:48:34 Influenza, split virus, quadrivalent, PF 2 completed CHIO [place], [place] [facility] 02/09/2022 13:01:41 Pneumococcal conjugate PCV20, polysaccharide [id number] conjugate, adjuvant, PF 3 completed NILA CABRERA Attn: Accounting[address] [place], [address], [place] [facility] 04/10/2022 15:32:29 Influenza, split virus, quadrivalent, PF 3 completed NILA CABRERA Attn: Accounting[address] [facility], [place], [address], [facility] 01/22/2023 09:08:12 Influenza, split virus, trivalent, PF 4 completed NILA CABRERA Attn: Accounting[address] [facility], [place], [address], [facility] 03/02/2024 10:10:44 Past Encounters Encounter ID Performer Location Encounter Start Date Encounter Closed Date Diagnosis/Indication Diagnosis SNOMED-CT Code Diagnosis ICD10 Code Diagnosis Note [id number] [facility] [address] [place] [address] 04/24/2014 10:44:59 04/24/2014 14:11:32 Gout 65383620 Disorder o f nervous system due to type 2 diabetes mellitus 457946189 Essential hypertension 93307851 Gastroesop hageal reflux disease 115595950 Hyperlipidemia 30778966 Allergic rhinitis 65741280 Osteoarthritis 845232325 Needs infl uenza immunization 624035688 [id number] Benita Xiong HI Shari Peacock [facility] [address] [place] [address] 07/31/2014 12:37:55 07/31/2014 13:30:04 Gout 67444085 Disorder o f nervous system due to type 2 diabetes mellitus 585220324 Essential hypertension 19349501 Gastroesop hageal reflux disease 419789337 Hyperlipidemia 78143625 Allergic rhinitis 15034640 Osteoarthritis 925435616 [id number] FRACISCO Rain (Adult Med) [address] [place] [address] 10/09/2014 11:32:30 10/09/2014 12:24:50 Shoulder pain 01088863 Will refer orthopedic s after xray results Obesity 887229900 [id number] Joby (Adult Med) [address] [place] [address] 10/23/2014 09:54:03 10/23/2014 11:01:46 Allergic reaction to wasp sting 204293718 Disorder o f nervous system due to type 2 diabetes mellitus 478250820 Obesity 234797756 Gout 17256197 Essential hypertension 63633768 Allergic rhinitis 83949058 Gastroesop hageal reflux disease 262402746 Hyperlipidemia 43960058 Shoulder pain 98579626 W ill refer orthopedic s after xray results - will have Sheri get xrays [id number] JUAN MIGUEL Rosas (Adult Med) [address] [place] [address] 01/22/2015 10:57:10 01/22/2015 18:08:50 Disorder of nervous system due to type 2 diabetes mellitus 468232351 E11.40 Obesity 610534912 E66.9 Gout 82180875 M10.9 Essential hypertension 66408203 I10 BP elevated today in office but I feel this is 2/2 shoulder pain Allergic rhinitis 512077 04 J30.9 Gastroesop hageal reflux disease 324145475 K21.9 Hyperlipidemia 58741099 E78.5 Shoulder pain 74664122 M 25.512 Will refer orthopedic s after xray results - will have Sheri get xrays [id number] Ralph Blandon MD [facility] [address] [address] 04/11/2015 09:38:12 04/11/2015 14:38:05 Rotator cuff syndrome 0930962 M75.112 Inflammati on of rotator cuff tendon 998046280 M65.812 Osteoarthr itis of acromioclavicular joint 715486923 M19.012 [id number] JUAN MIGUEL Rosas (Adult Med) [address] [place] [address] 04/22/2015 10:31:06 04/22/2015 11:14:28 Disorder of nervous system due to type 2 diabetes mellitus 138624496 E11.40 Continue with current medication s - encouraged to kep up the good work with eating and exercise Taking a Howard aspirin 325mg QD Obesity 873816164 E66.9 Gout 27382383 M10.9 Essential hypertension 83872564 I10 BP WNL today - feels better Allergic rhinitis 114375 04 J30.9 Gastroesop hageal reflux disease 214997096 K21.9 Hyperlipidemia 53213689 E78.5 Will check LFTs and cholestero l today Shoulder pain 58715866 M [address] Blandon [id number] Ralph Blandon MD [facility] [address] [address] 04/29/2015 10:43:50 04/30/2015 14:53:34 Rotator cuff syndrome 9050410 M75.112 Inflammati on of rotator cuff tendon 663342597 M65.812 Osteoarthr itis of acromioclavicular joint 861056191 M19.012 Lateral epicondylitis 20 3074296 M77.12 [id number] JUAN MIGUEL Rosas (Adult Med) [address] [place] [address] 07/23/2015 11:09:23 07/23/2015 11:33:25 Disorder of nervous system due to type 2 diabetes mellitus 355363364 E11.40 Continue with current medication s - encouraged to kep up the good work with eating and exercise Taking a Howard aspirin 325mg QD Obesity 989521985 E66.9 Gout 35077913 M10.9 Essential hypertension 33290536 I10 BP WNL today - feels better Allergic rhinitis 114530 04 J30.9 Gastroesop hageal reflux disease 850758816 K21.9 Hyperlipidemia 43823049 E78.5 Will check LFTs and cholestero l today Shoulder pain 70489691 M [address] Blandon [id number] JUAN MIGUEL Rosas (Adult Med) [address] [place] [address] 10/22/2015 10:36:15 10/22/2015 11:27:58 Essential hypertension 90877673 I10 BP WNL today - feels better Hyperlipidemia 27348384 E78.5 Will check LFTs and cholestero l today Disorder o f nervous system due to type 2 diabetes mellitus 749733805 E11.40 Continue with current medication s - encouraged to kep up the good work with eating and exercise Taking a Howard aspirin 325mg QD Obesity 245198932 E66.9 Gout 54971066 M10.9 Allergic rhinitis 241613 04 J30.9 Gastroesop hageal reflux disease 731549485 K21.9 Shoulder pain 38859906 M [address] Blandon Screening for malignant neoplasm of prostate 254636212 Z12.5 Patient consented to screening [id number] JUAN MIGUEL Rosas (Adult Med) [address] [place] [address] 0 02/21/2016 11:16:17 02/21/2016 12:15:09 Active or passive immunization 853312204 Z23 Screening for malignant neoplasm of colon 792762361 Z12.11 Patient states he will not do colonsocop yWill give stool test for home Tobacco user 221824763 Z 72.0 Disorder o f nervous system due to type 2 diabetes mellitus 115120725 E11.40 last a1c: 6.0Continu e with current medication s - encouraged to kep up the good work with eating and exercise Taking a Howard aspirin 325mg QD Hyperlipidemia 47903356 E78.5 Will check LFTs and cholestero l today Essential hypertension 05657222 I10 136/88 - WNL, NADc/w current medication Allergic rhinitis 600176 04 J30.9 Gout 79200315 M10.9 Gastroesop hageal reflux disease 332299009 K21.9 Osteoarthritis 389706928 M19.90 Obesity 313745988 E66.9 Advised 30 minutes of exercise 5 days/week Advised to not drink her calories Advised 3 balanced meals/day with plenty of fruits and vegetables [id number] JUAN MIGUEL Rosas (Adult Med) [address] [place] [address] 08/25/2016 11:39:19 08/26/2016 14:14:45 Active or passive immunization 388630777 Z23 Screening for malignant neoplasm of colon 314250311 Z12.11 Patient states he will not do colonoscop yWill give stool test for home Tobacco user 010999050 Z 72.0 Advised to quit Disorder o f nervous system due to type 2 diabetes mellitus 656512243 E11.40 last a1c: 6.0Continu e with current medication s - encouraged to kep up the good work with eating and exerciseTa anamaria a Howard aspirin 325mg QD Hyperlipidemia 46158869 E78.5 Will check LFTs and cholestero l today Essential hypertension 76063200 I10 130/80 - WNL, NADc/w current medication Allergic rhinitis 259518 04 J30.9 Gout 48941012 M10.9 Will check uric acid today Gastroesop hageal reflux disease 065407440 K21.9 c/w rantidine Osteoarthritis 869991356 M19.90 Advised concerning the increased risk of cardiac events with NSAIDs - patient elects to take medication Obesity 429431270 E66.9 Advised 30 minutes of exercise 5 days/week Advised to not drink her calories Advised 3 balanced meals/day with plenty of fruits and vegetables HIV screening 092269040 Z11.4 Consented to screen [id number] JUAN MIGUEL Rosas (Adult Med) [address] [place] [address] 01/28/2017 11:16:33 01/28/2017 12:35:07 Active or passive immunization 132099164 Z23 Dizziness 904755437 R42 Has seen Dr. Penn in the pastBased on his hx sx's sound cardiac - he has seen Dr. Penn in the past for cardiology - will re-refer him there for evaluation Advised if he has any more of these dizzy spells and has LOC he needs to go directly to the ER Lateral epicondylitis 20 3870507 M77.11 Discussed tightening the tennis elbow strap over the most tender portion of elbow Pain of le ft shoulder joint 4364391666 0028115 M25.512 TTP over AC jointWill check xray for possible fx Disorder o f nervous system due to type 2 diabetes mellitus 102653654 E11.40 last a1c: 6.0c/w medication He has a f/u appointmen t with me in 1 month for medication review [id number] JUAN MIGUEL Rosas (Adult Med) [address] [place] [address] 02/23/2017 11:13:56 02/23/2017 13:57:15 Pain of left shoulder joint 7165036228 6063941 M25.512 TTP over AC jointWill check xray for possible fx Lateral epicondylitis 20 7007595 M77.11 M77.12 Discussed tightening the tennis elbow strap over the most tender portion of elbow Screening for malignant neoplasm of colon 132672719 Z12.11 Patient states he will not do colonoscop yWill again give stool test for home Tobacco user 045852283 Z 72.0 Advised to quit Disorder o f nervous system due to type 2 diabetes mellitus 386896211 E11.40 last a1c: 6.0Continu e with current medication s - encouraged to kep up the good work with eating and exerciseTa anamaria cynthia Howard aspirin 325mg QD Hyperlipidemia 13947567 E78.5 c/w current medication Essential hypertension 36130055 I10 132/86- WNL, NADc/w current medication Has an appointmen t with cardiology tomorrow to discuss his dizziness Allergic rhinitis 043723 04 J30.9 Gout 49285181 M10.9 Will check uric acid today Gastroesop hageal reflux disease 500410319 K21.9 c/w rantidine Osteoarthritis 619181610 M19.90 Advised concerning the increased risk of cardiac events with NSAIDs - patient elects to take medication Advised that if he has no problems walking I would like him to walk as much as he can and he does not need the disability carolwaleMelani ised that his HTN and DM are completely under control, so at this point I cannot write for that either He has been referred to ortho and podiatry (which he has an appointmen t in 3 days) so he should speak with his specialist s concerning this paperwork Obesity 178142949 E66.9 Advised 30 minutes of exercise 5 days/week Advised to not drink her calories Advised 3 balanced meals/day with plenty of fruits and vegetables Screening for malignant neoplasm of prostate 018037946 Z12.5 [id number] JUAN MIGUEL Rosas (Adult Med) [address] [place] [address] 08/26/2017 10:43:39 08/26/2017 11:45:38 Pain of left shoulder joint 4391256464 9335812 M25.512 TTP over AC jointPatie nt not interested in further workup at this time. Screening for malignant neoplasm of colon 009330293 Z12.11 States that he cannot do the home stool test.Will consider a colonoscop y Tobacco user 310613659 Z 72.0 Advised to quit Disorder o f nervous system due to type 2 diabetes mellitus 703745933 E11.40 last a1c: 6.0Continu e with current medication s - encouraged to kep up the good work with eating and exerciseTa anamaria cynthia Howard aspirin 325mg QD Hyperlipidemia 26914424 E78.5 c/w current medication Essential hypertension 95547912 I10 130/82- WNL, NADc/w current medication Discussed DASH diet Advised 30 minutes of exercise minimum dailyAdvis ed tobacco, alcohol, caffeine all increase BPAdvised goal for BP is <140/90 Allergic rhinitis 898154 04 J30.9 Gout 86134820 M10.9 Will check uric acid today Gastroesop hageal reflux disease 868704794 K21.9 c/w rantidine Advised to stay away from spicy and greasy foodsAdvis ed to stay away from fatty foodsDo not eat within 2 hours of going to bedStay sitting up after mealsNo smoking Osteoarthritis 929566547 M19.90 Advised concerning the increased risk of cardiac events with NSAIDs - patient elects to take medication Advised that if he has no problems walking I would like him to walk as much as he can and he does not need the disability Brennan ised that his HTN and DM are completely under control, so at this point I cannot write for that either He has been referred to ortho and podiatry (which he has an appointmen t in 3 days) so he should speak with his specialist s concerning this paperwork Insomnia 273903421 G47.0 0 No screen time within an hour of bedNo caffeine close to bed timeTalked about good sleep hygeine and going to bed at the same time every night and waking up at the same time every morningFin d calming activies to do at night like crafting, reading, meditation Will initiate trazodone 50mg qPM - advised it can make him feel drowsy in the morning Adult [facility] th examination 022626372 Z00.01 Body mass index 30+ - obesity 865508205 Z68.39 Advised 30 minutes of exercise 5 days/week Advised to not drink her calories Advised 3 balanced meals/day with plenty of fruits and vegetables [id number] JUAN MIGUEL Rosas (Adult Med) [address] [place] [address] 10/06/2017 12:45:08 10/07/2017 08:55:02 Insomnia 643465818 G47.00 No screen time within an hour of bedNo caffeine close to bed timeTalked about good sleep hygeine and going to bed at the same time every night and waking up at the same time every morningFin d calming activies to do at night like crafting, reading, meditation Will try amitriptyl ine 25mg qPM prior to bedtime Bereavement 09868596 Z63 .4 Advised to schedule with counseling Advised any SI/HI to go directly to the ER States he will think about everything and discuss with his housing case manager when he is ready for tx [id number] JUAN MIGUEL Rosas (Adult Med) [address] [place] [address] 02/24/2018 11:30:25 02/25/2018 09:47:48 Administration of influenza vaccine 02290905 Z23 Tobacco user 153260376 Z 72.0 Advised to quit Disorder o f nervous system due to type 2 diabetes mellitus 875868177 E11.40 last a1c: 6.0Continu e with current medication s - encouraged to kep up the good work with eating and exerciseTa king cynthia Howard aspirin 325mg QD Has an appointmen t with podiatry in [place] with Dr. Raymond Hyperlipidemia 17580222 E78.5 c/w current medication Essential hypertension 20512527 I10 114/80- WNL, NADc/w current medication Discussed DASH diet Advised 30 minutes of exercise minimum dailyAdvis ed tobacco, alcohol, caffeine all increase BPAdvised goal for BP is <140/90 Allergic rhinitis 518506 04 J30.9 Gout 65312093 M10.9 Gastroesop hageal reflux disease 757823594 K21.9 c/w rantidine Advised to stay away from spicy and greasy foodsAdvis ed to stay away from fatty foodsDo not eat within 2 hours of going to bedStay sitting up after mealsNo smoking Osteoarthritis 614131054 M19.90 Advised concerning the increased risk of cardiac events with NSAIDs - patient elects to take medication Advised that if he has no problems walking I would like him to walk as much as he can and he does not need the disability placElda ised that his HTN and DM are completely under control, so at this point I cannot write for that either Insomnia 285191409 G47.0 0 No screen time within an hour of bedNo caffeine close to bed timeTalked about good sleep hygeine and going to bed at the same time every night and waking up at the same time every morningFin d calming activies to do at night like crafting, reading, meditation c/w amitriptyl ine 25mg qPM PRN Body mass index 30+ - obesity 961904119 Z68.39 Advised 30 minutes of exercise 5 days/week Advised to not drink her calories Advised 3 balanced meals/day with plenty of fruits and vegetables [id number] Walker Raymond [facility] [address] [place] [address] 03/10/2018 14:01:04 03/16/2018 14:04:19 Neuropathy due to diabetes mellitus 528072304 E11.42 Onychomycosis 095421744 B35.1 Foot callus 755554212 L8 4 [id number] [facility] [address] [place] [address] 06/09/2018 11:17:59 06/15/2018 13:12:14 Neuropathy due to diabetes mellitus 835937281 E11.42 Onychomycosis 367010448 B35.1 Foot callus 740746323 L8 4 [id number] Gareth Morrissey MD [facility] (Adult Med) [address] [place] [address] 09/07/2018 11:50:24 09/07/2018 13:33:25 Gastroesophageal reflux disease 115985796 K21.9 Insomnia 679822685 G47.0 0 Body mass index 30+ - obesity 697700758 Z68.41 Type 2 pat betes mellitus 26364442 E11.42 Essential hypertension 98484573 I10 Gout 71089134 M10.9 Disorder o f nervous system due to type 2 diabetes mellitus 104880331 E11.49 Hyperlipidemia 71434614 E78.5 Allergic rhinitis 189079 04 J30.2 Screening for malignant neoplasm of prostate 143998695 Z12.5 Fatigue 04782677 R53.83 [id number] [facility] [address] [place] [address] 09/13/2018 14:27:13 09/14/2018 10:44:30 Neuropathy due to diabetes mellitus 631336470 E11.42 Onychomycosis 593504146 B35.1 Foot callus 545831070 L8 4 [id number] Walker Raymond DPM [facility] [address] [place] [address] 12/15/2018 14:42:18 12/19/2018 15:49:16 Neuropathy due to diabetes mellitus 064960350 E11.42 Onychomycosis 208789767 B35.1 Foot callus 916848196 L8 4 [id number] MD Joby Carr (Adult Med) [address] [place] [address] 12/19/2018 15:12:37 12/19/2018 16:25:57 Anemia 352738194 D64.9 Type 2 pat betes mellitus 26900103 E11.42 Tobacco user 303823640 Z 72.0 Insomnia 270034743 G47.0 0 Gastroesop hageal reflux disease 536952495 K21.9 Essential hypertension 94213401 I10 Disorder o f nervous system due to type 2 diabetes mellitus 784609661 E11.49 [id number] NILA CABRERA [facility] [address] [place] [address] 02/06/2019 14:30:36 02/10/2019 08:57:44 Type 2 diabetes mellitus 49751805 E11.9 A1C 5.8 which has improved from last check; 6.0Continu e with current medication s - encouraged to keep up the good work with eating and exercise Taking a Howard aspirin 325mg QD Essential hypertension 77620743 I10 BP 150/84 today. He states he gets nervous when in office. Advised to check BP regularly with a goal of <140/90, if BP consistent ly >140/90, advised to contact clinic Discussed DASH diet Advised 30 minutes of exercise minimum daily Advised tobacco, alcohol, caffeine all increase BP Advised goal for BP is <140/90 Hyperlipidemia 71657063 E78.5 Continue Pravastati n 40 mg lipid panel 09/07/18 TC 168, Triglyceri cleve 197, HDL 49 discussed continuing medication , keep eating balanced meals, watching carbs and sweets including drinks Administra tion of influenza vaccine 73243595 Z23 Patient would like flu shot today. Tobacco user 457695183 Z 72.0 Advised to quit. One pack lasts about 2 weeks. Body mass index 30+ - obesity 114121416 Z68.39 Advised 30 minutes of exercise 5 days/week Advised to not drink her calories Advised 3 balanced meals/day with plenty of fruits and vegetables [id number] Emily Cornell MA [facility] [address] [place] [address] 04/13/2019 10:41:19 04/14/2019 12:26:14 Type 2 diabetes mellitus 47104107 E11.9 Continue with current medication s - encouraged to keep up the good work with eating and exercise Taking a Howard aspirin 325mg QD Essential hypertension 29948631 I10 BP 138/80 today. He states he gets nervous when in office. Advised to check BP regularly with a goal of <140/90, if BP consistent ly >140/90, advised to contact clinic Discussed DASH diet Advised 30 minutes of exercise minimum daily Advised tobacco, alcohol, caffeine all increase BP Advised goal for BP is <140/90 Tobacco user 478948087 Z 72.0 Advised to quit. One pack lasts about 2 weeks. Body mass index 30+ - obesity 029177761 Z68.39 Advised 30 minutes of exercise 5 days/week Advised to not drink her calories Advised 3 balanced meals/day with plenty of fruits and vegetables Hyperlipidemia 79777581 E78.5 Continue Pravastati n 40 mg lipid panel 09/07/18 TC 168, Triglyceri cleve 197, HDL 49 discussed continuing medication , keep eating balanced meals, watching carbs and sweets including drinks Insomnia 765770031 G47.0 0 patient has been having trouble with sleep after of mom. sleeps around 4-5 hours. - try melatonin- discussed sleep hygiene- f/u if worsens or continues after 4-8 weeks [id number] NILA CABRERA [facility] [address] [place] [address] 09/14/2019 09:17:07 09/15/2019 12:29:05 Allergic reaction to wasp sting 549642486 T63.461A refill Type 2 pat betes mellitus 31198295 E11.9 Last A1C 5.8, WNL. needs new labs. medication s: Metformin 500mg qd - check sugars daily; goal fasting <130 and 1-2 hours after meal <180. call office if sugars falling under 70. Patient aware of hypoglycem ia symptoms. - discussed diet: avoid sugars, pasta, tortillas, bread, rice, potatoes - Excercise 30 min 5x week - diabetic eye exam - foot exam at next visit Essential hypertension 98245484 I10 BP 138/80 today. He states he gets nervous when in office. Advised to check BP regularly with a goal of <140/90, if BP consistent ly >140/90, advised to contact clinic Discussed DASH diet Advised 30 minutes of exercise minimum daily Advised tobacco, alcohol, caffeine all increase BP Advised goal for BP is <140/90 Tobacco user 956247625 Z 72.0 Advised to quit. One pack lasts about 2 weeks. Body mass index 30+ - obesity 552739478 Z68.39 Advised 30 minutes of exercise 5 days/week Advised to not drink her calories Advised 3 balanced meals/day with plenty of fruits and vegetables Hyperlipidemia 68967274 E78.5 Continue Pravastati n 40 mg lipid panel 04/13/19 TC 161, Triglyceri cleve 183, HDL 48 discussed continuing medication , keep eating balanced meals, watching carbs and sweets including drinks [id number] Walker Raymond DPM [facility] [address] [place] [address] 09/28/2019 14:01:09 10/03/2019 13:44:39 Neuropathy due to diabetes mellitus 326247874 E11.42 Onychomycosis 220916753 B35.1 Foot callus 153524122 L8 4 Pain of to e of right foot 4062741692 21156 M79.674 Pain of to e of left foot 5076124745 75440 M79.675 Type 2 pat betes mellitus with peripheral angiopathy 041941599 E11.51 [id number] NILA CABRERA [facility] [address] [place] [address] 03/12/2020 08:32:33 03/13/2020 11:19:29 Gout 30096927 M10.9 checking uric acid. - continue allopurino l 300mg Hyperlipidemia 75497716 E78.5 Continue Pravastati n 40 mg lipid panel 04/13/19 TC 161, Triglyceri cleve 183, HDL 48 discussed continuing medication , keep eating balanced meals, watching carbs and sweets including drinks Type 2 pat betes mellitus 74857394 E11.9 A1C 5.8 which has improved from last check; 6.0Continu e with current medication s - encouraged to keep up the good work with eating and exercise Taking a Howard aspirin 325mg QD Essential hypertension 98113068 I10 Advised to check BP regularly with a goal of <140/90, if BP consistent ly >140/90, advised to contact clinic Discussed DASH diet Advised 30 minutes of exercise minimum daily Advised tobacco, alcohol, caffeine all increase BP Advised goal for BP is <140/90 Tobacco user 991054322 Z 72.0 Advised to quit. One pack lasts about 2 weeks. Body mass index 30+ - obesity 243832508 Z68.39 Advised 30 minutes of exercise 5 days/week Advised to not drink her calories Advised 3 balanced meals/day with plenty of fruits and vegetables [id number] Walker Raymond [facility] [address] [place] [address] 04/23/2020 12:09:03 04/24/2020 12:13:45 Neuropathy due to diabetes mellitus 567686605 E11.42 Onychomycosis 382607436 B35.1 Foot callus 621556854 L8 4 Pain of to e of right foot 2458942074 40657 M79.674 Pain of to e of left foot 7808295047 55576 M79.675 Type 2 pat betes mellitus with peripheral angiopathy 670320361 E11.51 [id number] NILA CABRERA [facility] [address] [place] [address] 08/12/2020 08:16:01 08/12/2020 14:20:50 Allergic reaction to wasp sting 796799251 T63.461A refill Allergic rhinitis 751736 04 J30.9 Patient controls allergies with cetrizine. needs refills. [id number] NILA CABRERA [facility] [address] [place] [address] 09/05/2020 16:15:31 09/13/2020 12:10:23 Decreased breath sounds 68309095 R09.89 Gout 32755795 M10.9 checking uric acid. - continue allopurino l 300mg Hyperlipidemia 15412871 E78.5 Continue Pravastati n 40 mg lipid panel 04/13/19 TC 161, Triglyceri cleve 183, HDL 48 discussed continuing medication , keep eating balanced meals, watching carbs and sweets including drinks Type 2 pat betes mellitus 63063217 E11.9 A1C 5.8 which has improved from last check; 6.0Continu e with current medication s - encouraged to keep up the good work with eating and exercise Taking a Howard aspirin 325mg QD Essential hypertension 20166939 I10 patient needs new cardiologi st due to insurance. Last cardiologi st was Dr Sarah Penn. Advised to check BP regularly with a goal of <140/90, if BP consistent ly >140/90, advised to contact clinic Discussed DASH diet Advised 30 minutes of exercise minimum daily Advised tobacco, alcohol, caffeine all increase BP Advised goal for BP is <140/90 Tobacco user 469991340 Z 72.0 Advised to quit. One pack lasts about 2 weeks. Body mass index 30+ - obesity 529237797 Z68.39 Advised 30 minutes of exercise 5 days/week Advised to not drink her calories Advised 3 balanced meals/day with plenty of fruits and vegetables Pain of le ft shoulder joint 1413608278 2562352 M25.880 [id number] Walker Raymond [facility] [address] [place] [address] 11/28/2020 11:14:51 12/15/2020 08:12:58 Neuropathy due to diabetes mellitus 224821368 E11.42 Onychomycosis 469225502 B35.1 Foot callus 195508275 L8 4 Pain of to e of right foot 8670602748 19313 M79.674 Pain of to e of left foot 5974829708 28878 M79.675 Type 2 pat betes mellitus with peripheral angiopathy 250787217 E11.51 [id number] Walker Raymond [facility] [address] [place] [address] 02/27/2021 13:59:23 03/03/2021 07:28:17 Neuropathy due to diabetes mellitus 322004808 E11.42 Onychomycosis 175120772 B35.1 Foot callus 313927213 L8 4 Pain of to e of right foot 0959903334 22663 M79.674 Pain of to e of left foot 7732251362 30293 M79.675 Type 2 pat betes mellitus with peripheral angiopathy 593999244 E11.51 [id number] NILA CABRERA [facility] [address] [place] [address] 04/11/2021 16:06:40 04/15/2021 09:30:03 Gout 32079213 M10.9 checking uric acid. uric acid level : 4.6, wnl- continue allopurino l 300mg Hyperlipidemia 57341432 E78.5 Continue Pravastati n 40 mg lipid panel 04/19/20 Triglyceri hfi445, HDL 48 discussed continuing medication , keep eating balanced meals, watching carbs and sweets including drinks Type 2 pat betes mellitus 53001662 E11.9 Patient is complaint with f/u visits and medication s. Controlled on diet and metormin 500MG qd. 02/2021 A1C 6.306/2020 A1C 6.307/2020 A1C 6.012/2020 ALB/cr<30, wnl, GFR >60 - Continue with current medication s- encouraged to keep up the good work with eating and exercise- Taking a Howard aspirin 325mg QD- foot exam done by Podiatry Nicola 2020- due for eye exam Essential hypertension 01035067 I10 patient needs new cardiologi st due to insurance. Last cardiologi st was Dr Sarah Penn. had appointmen t next month with new cardio andseron Advised to check BP regularly with a goal of <140/90, if BP consistent ly >140/90, advised to contact clinic Discussed DASH diet Advised 30 minutes of exercise minimum daily Advised tobacco, alcohol, caffeine all increase BP Advised goal for BP is <140/90 Tobacco user 110087371 Z 72.0 Advised to quit. One pack lasts about 2 weeks. Body mass index 30+ - obesity 646288187 Z68.39 Advised 30 minutes of exercise 5 days/week Advised to not drink her calories Advised 3 balanced meals/day with plenty of fruits and vegetables Screening for malignant neoplasm of colon 209916739 Z12.11 agrees to cologuard. will not have colonoscop y done. Depressive disorder 8724 4061 F32.A patient still strggling with mother , feeling lonely, depressed, low energy, decreased appetite.W ill trial low dose sertraline and f/u one month. - advised counseling -Patient was educated on his prescribed medication s, rationale for medication s, dosing indication s, adverse reactions, black box warning, dosing indication s, SE (e.g., decreased libido, weight gain, gynecomast ia, and galactorrh ea) and the risks and benefits. -Call center with questions/ concerns. Go to ER or call 911 for crisis (e.g., suicidal behaviors, suicidal ideations, intent or plan emerge). Additional ly, patient has suicide hotline #. - f/u one month - call with questions Allergic rhinitis 232151 04 J30.9 Patient controls allergies with cetrizine. needs refills. Morbid obesity 958417134 E66.01 BMI 41.1 [id number] Walker Raymond DPM [facility] [address] [place] [address] 07/15/2021 14:49:46 07/16/2021 15:04:17 Neuropathy due to diabetes mellitus 500936963 E11.42 Onychomycosis 359711594 B35.1 Foot callus 782009634 L8 4 Pain of to e of right foot 6755604915 41405 M79.674 Pain of to e of left foot 8927919781 90019 M79.675 Type 2 pat betes mellitus with peripheral angiopathy 917881393 E11.51 [id number] [facility] [address] [place] [address] 11/11/2021 13:56:59 11/13/2021 07:29:52 Neuropathy due to diabetes mellitus 747993529 E11.42 Onychomycosis 366222787 B35.1 Foot callus 298558345 L8 4 Pain of to e of right foot 6953650029 20624 M79.674 Pain of to e of left foot 3060086275 08188 M79.675 Type 2 pat betes mellitus with peripheral angiopathy 342024361 E11.51 [id number] NILA CABRERA [facility] [address] [place] [address] 01/01/2022 14:52:57 01/02/2022 15:14:02 Depressive disorder 37628718 F32.A doing somewhat better but feels 50/50 on bad days. Sleep is improved. still has low energy. will increase sertraline . toelrating well w/o side effects. - advised counseling -Patient was educated on his prescribed medication s, rationale for medication s, dosing indication s, adverse reactions, black box warning, dosing indication s, SE (e.g., decreased libido, weight gain, gynecomast ia, and galactorrh ea) and the risks and benefits.- Call center with questions/ concerns. Go to ER or call 911 for crisis (e.g., suicidal behaviors, suicidal ideations, intent or plan emerge). Additional ly, patient has suicide hotline #.- f/u one month- call with questions Allergic r eaction to wasp sting [id number] T63.461A refill Essential hypertension 70289957 I10 patient needs new cardiologi st due to insurance. Last cardiologi st was Dr Sarah Penn. had appointmen t next month with new cardio andseron Advised to check BP regularly with a goal of <140/90, if BP consistent ly >140/90, advised to contact clinic Discussed DASH diet Advised 30 minutes of exercise minimum daily Advised tobacco, alcohol, caffeine all increase BP Advised goal for BP is <140/90 Screening for malignant neoplasm of colon 854641053 Z12.11 agrees to cologuard, unable to undestand last box. declines colonoscop y. Type 2 pat betes mellitus 62187680 E11.9 Patient is complaint with f/u visits and medication s. Controlled on diet and metormin 500MG qd. 02/2021 A1C 6.306/202 A1C 6.307/2020 A1C 6.012/2021 ALB/cr<30, wnl, GFR >60 alb/cr: orderedpps v23: 08/2016eye exam: given order todaystati n: shad n, complaint- encouraged to keep up the good work with eating and exercise- Taking a Howard aspirin 325mg QD- foot exam done by Podiatry Decemeber 2020- due for eye exam Screening for malignant neoplasm of prostate 764723536 Z12.5 Morbid obesity 718472320 E66.01 BMI 40.7 patient starting workout program next month [employer] 367957693 K08 .109 has nto work his teeth in 10 years after near choking incidient. needs them fitted. agrees to call Chelsi Campos [id number] NILA CABRERA [facility] [address] [place] [address] 02/04/2022 11:59:07 02/05/2022 15:04:25 Depressive disorder 91549758 F32.A .sleeping 10 hours. still has low energy, no medication . I wasn't like this two years ago. . Will switch to lexapro. there is still risk of headache and will f/u in 4 weeks. - advised counseling -Patient was educated on his prescribed medication s, rationale for medication s, dosing indication s, adverse reactions, black box warning, dosing indication s, SE (e.g., decreased libido, weight gain, gynecomast ia, and galactorrh ea) and the risks and benefits.- Call center with questions/ concerns. Go to ER or call 911 for crisis (e.g., suicidal behaviors, suicidal ideations, intent or plan emerge). Additional ly, patient has suicide hotline #.- f/u one month- call with questions Type 2 pat betes mellitus 58812541 E11.9 needs to leave urine today 02/2021 A1C 6.306/2020 A1C 6.307/2020 A1C 6.012/2020 ALB/cr<30, wnl, GFR >60 alb/cr: orderedpps v23: 08/2016eye exam: given order todaystati n: shad santiago, complaint- encouraged to keep up the good work with eating and exercise- Taking a Howard aspirin 325mg QD- foot exam done by Podiatry Decemeber 2020- due for eye exam Administra tion of influenza vaccine 33487673 Z23 Patient would like flu shot today. [id number] NILA CABRERA [facility] [address] [place] [address] 03/06/2022 14:01:21 03/10/2022 15:52:09 Depressive disorder 14873952 F32.A .sleeping 10 hours. still has low energy, no medication . I wasn't like this two years ago. He used to take amitriptyl ine and he slept well and depression as improved. He would like to re-start.. there is still risk of headache and will f/u in 4 weeks. - advised counseling -Patient was educated on his prescribed medication s, rationale for medication s, dosing indication s, adverse reactions, black box warning, dosing indication s, SE (e.g., decreased libido, weight gain, gynecomast ia, and galactorrh ea) and the risks and benefits.- Call center with questions/ concerns. Go to ER or call 911 for crisis (e.g., suicidal behaviors, suicidal ideations, intent or plan emerge). Additional ly, patient has suicide hotline #.- f/u one month- call with questions Smoker [id number] F17.200 smoking <1/2 ppd. wants to quit. wants patches. Morbid obesity 619317986 E66.01 BMI 40.7 patient starting workout program next month [id number] NILA CABRERA [facility] [address] [place] [address] 04/10/2022 14:56:38 04/16/2022 11:22:21 Depressive disorder 50687868 F32.A doing better on amitriptyl ine. wants refills. denies SI/HI.- advised counseling -Patient was educated on his prescribed medication s, rationale for medication s, dosing indication s, adverse reactions, black box warning, dosing indication s, SE (e.g., decreased libido, weight gain, gynecomast ia, and galactorrh ea) and the risks and benefits.- Call center with questions/ concerns. Go to ER or call 911 for crisis (e.g., suicidal behaviors, suicidal ideations, intent or plan emerge). Additional ly, patient has suicide hotline #.- f/u one month- call with questions Administra tion of pneumococcal vaccine 46884002 Z23 given today Type 2 pat betes mellitus 68774420 E11.9 needs to leave urine today A1C 6.1% (12/2021) 6.3% (02/2021)6 .3 (08/2020 )6.0 % (09/2019) alb/cr: WNL ps v23: 08/2016pneu monia: prevnar 20 (03/2022)ey e exam: 01/2022 crown vision, normalstat in: pravastati n, complainta spirin: 81mg Ingrowing nail 011551366 L60.0 needs f/y with podiatryjo di will schedule Onychomycosis 599425758 B35.1 thickened nails Adult heal th examination 820712288 Z00.00 Patient presents for wellness visit exam performedD M controlled prevnar 20 administer edadvised podiatry for ingrown nails Screening for malignant neoplasm of colon 383930547 Z12.11 agrees to cologuard, unable to understand last box. declines colonoscop y. Impacted c erumen in right ear 0868356644 159193 H61.21 debroxavoi d qtips Essential hypertension 49072747 I10 Saw cardiology and told no appoitnmen t needed until 2024.no changes to medication s. Advised to check BP regularly with a goal of <140/90, if BP consistent ly >140/90, advised to contact clinic Discussed DASH diet Advised 30 minutes of exercise minimum daily Advised tobacco, alcohol, caffeine all increase BP Advised goal for BP is <140/90 Morbid obesity 022383579 E66.01 BMI 41.6 patient starting workout program next month [id number] CLAUDE ALFARO DPM [facility] [address] [place] [address] 04/29/2022 12:31:30 05/01/2022 10:47:53 Neuropathy due to diabetes mellitus 934866101 E11.42 Patient was educated about the systemic risks of diabetes and importance of proper glucose control, dangers of neuropathy and loss of gift of pain and risk stratifica tion and exam frequency. Patient was educated on high pressure areas including risks and offloading solutions. Reviewed with patient proper foot care instructio ns and daily self-exami nation and monitoring of the feet Onychomycosis 230637205 B35.1 Foot callus 676245260 L8 4 Pain of to e of right foot 7070396287 05137 M79.674 Pain of to e of left foot 1737445779 25705 M79.675 Tinea pedis 5492276 B35. 3 The patient was educated why and how the fungal infection evolved in their feet and the patient was given informatio n regarding how to prevent further infection. The patient was told to keep feet dry and change socks. The patient was told to be careful with old shoes and excessive sweating. The patient was educated regarding both OTC and prescripti on treatments . Bilateral atherosclerosis of arteries of lower limbs [id number] 9654916 I70.203 The patient was educated about the importance of exercise, diet and the need to protect their feet in order to prevent injury or ulceration . Hammer toe 805410526 M20 .41 M20.42 The patient was educated regarding how to mechanical ly stabilize their deformity. The patient was given education about shoe recommenda tions specific for the condition. The patient was educated about custom orthotics and how appropriat e shoes and orthotics can prevent further worsening of the deformity. The patient was educated about how bad shoe habits can worsen the condition. NSAIDS, P.T., injections and other conservati ve treatments were discussed. Both surgical and non surgical treatments were discussed, but conservati ve options were emphasized . [id number] NILA CABRERA [facility] [address] [place] [address] 08/03/2022 15:20:46 08/03/2022 15:58:03 Depressive disorder 20474978 F32.A doing better on amitriptyl ine. wants refills. denies SI/HI.- advised counseling -Patient was educated on his prescribed medication s, rationale for medication s, dosing indication s, adverse reactions, black box warning, dosing indication s, SE (e.g., decreased libido, weight gain, gynecomast ia, and galactorrh ea) and the risks and benefits.- Call center with questions/ concerns. Go to ER or call 911 for crisis (e.g., suicidal behaviors, suicidal ideations, intent or plan emerge). Additional ly, patient has suicide hotline #.- f/u one month- call with questions Screening for malignant neoplasm of colon 141206095 Z12.11 agrees to cologuard, unable to understand last box. declines colonoscop y. Essential hypertension 63906242 I10 Saw cardiology and told no appoitnmen t needed until 2024.no changes to medication s. Advised to check BP regularly with a goal of <140/90, if BP consistent ly >140/90, advised to contact clinic Discussed DASH diet Advised 30 minutes of exercise minimum daily Advised tobacco, alcohol, caffeine all increase BP Advised goal for BP is <140/90 Morbid obesity 617621143 E66.01 BMI 41.6 patient starting workout program next month Type 2 pat betes mellitus 53003051 E11.9 A1C A1C 5.8% (07/2022) 6.1% (12/2021) 6.3% (02/2021)6 .3 (08/2020 )6.0 % (09/2019) alb/cr: WNL 2pps v23: 08/2016pneu monia: prevnar 20 (03/2022)ey e exam: 01/2022 crown vision, normalstat in: pravastati n, complainta spirin: 81mg Hyperlipidemia 42248295 E78.5 Continue Pravastati n 40 mg lipid panel 04/19/20 Triglyceri oce127, HDL 48 discussed continuing medication , keep eating balanced meals, watching carbs and sweets including drinks [id number] CLAUDE ALFARO DPM [facility] [address] [place] [address] 08/31/2022 12:27:02 09/01/2022 13:12:27 Neuropathy due to diabetes mellitus [id number] E11.42 Patient was educated about the systemic risks of diabetes and importance of proper glucose control, dangers of neuropathy and loss of gift of pain and risk stratifica tion and exam frequency. Patient was educated on high pressure areas including risks and offloading solutions. Reviewed with patient proper foot care instructio ns and daily self-exami nation and monitoring of the feet-per patient is scheduled to obtain diabetic shoes in january 2023 Onychomycosis 335105977 B35.1 Foot callus 458112450 L8 4 Pain of to e of right foot 1372603367 00780 M79.674 Pain of to e of left foot 1704122753 61782 M79.675 Tinea pedis 1299139 B35. 3 The patient was educated why and how the fungal infection evolved in their feet and the patient was given informatio n regarding how to prevent further infection. The patient was told to keep feet dry and change socks. The patient was told to be careful with old shoes and excessive sweating. The patient was educated regarding both OTC and prescripti on treatments .-continue ketoconazo le 2% cream prn Bilateral atherosclerosis of arteries of lower limbs [id number] 6086659 I70.203 The patient was educated about the importance of exercise, diet and the need to protect their feet in order to prevent injury or ulceration . Hammer toe 871017864 M20 .41 M20.42 The patient was educated regarding how to mechanical ly stabilize their deformity. The patient was given education about shoe recommenda tions specific for the condition. The patient was educated about custom orthotics and how appropriat e shoes and orthotics can prevent further worsening of the deformity. The patient was educated about how bad shoe habits can worsen the condition. NSAIDS, P.T., injections and other conservati ve treatments were discussed. Both surgical and non surgical treatments were discussed, but conservati ve options were emphasized . Localized edema 90587931 4 R60.0 [id number] NILA CABRERA [facility] [address] [place] [address] 01/20/2023 10:03:11 01/20/2023 12:34:43 Prostate specific antigen above reference range 697704406 R97.20 check Depressive disorder 9308 9007 F32.A doing better on amitriptyl ine. will cut out soda and check in one month to see if sleep improved- advised counseling -Patient was educated on his prescribed medication s, rationale for medication s, dosing indication s, adverse reactions, black box warning, dosing indication s, SE (e.g., decreased libido, weight gain, gynecomast ia, and galactorrh ea) and the risks and benefits.- Call center with questions/ concerns. Go to ER or call 911 for crisis (e.g., suicidal behaviors, suicidal ideations, intent or plan emerge). Additional ly, patient has suicide hotline #.- f/u one month- call with questions Screening for malignant neoplasm of colon 079377542 Z12.11 agrees to cologuard, unable to understand last box. declines colonoscop y. Essential hypertension 39379894 I10 Saw cardiology and told no appoitnmen t needed until 2024.no changes to medication s. Advised to check BP regularly with a goal of <140/90, if BP consistent ly >140/90, advised to contact clinic Discussed DASH diet Advised 30 minutes of exercise minimum daily Advised tobacco, alcohol, caffeine all increase BP Advised goal for BP is <140/90 Morbid obesity 692378514 E66.01 BMI 40 patient starting workout program next month Type 2 pat betes mellitus 76772627 E11.9 A1C 6.0% (01/2023) 5.8% (07/2022) 6.1% (12/2021) 6.3% (02/2021)6 .3 (08/2020 )6.0 % (09/2019) alb/cr: WNL ps v23: 08/2016pneu monia: prevnar 20 (03/2022)ey e exam: 01/2022 crown vision, normalstat in: pravastati n, complainta spirin: 81mg Hyperlipidemia 79596308 E78.5 should increase pravastati n discussed continuing medication , keep eating balanced meals, watching carbs and sweets including drinks Pain of le ft shoulder joint 1515072643 9478814 M25.512 left shoulder pain x 2 months .xray non revealing. PEX: negative hawking, +neers. ROM limited to 90 degrees active motionstar t PT Administra tion of influenza vaccine 09814328 Z23 Patient would like flu shot today. [id number] CLAUDE ALFARO DPM [facility] [address] [place] [address] 02/01/2023 12:27:21 02/02/2023 14:46:09 Neuropathy due to diabetes mellitus 220850917 E11.42 Patient was educated about the systemic risks of diabetes and importance of proper glucose control, dangers of neuropathy and loss of gift of pain and risk stratifica tion and exam frequency. Patient was educated on high pressure areas including risks and offloading solutions. Reviewed with patient proper foot care instructio ns and daily self-exami nation and monitoring of the feet-per patient is scheduled to obtain diabetic shoes in late january 2023 Onychomycosis 913632956 B35.1 Foot callus 000352890 L8 4 Pain of to e of right foot 6755698142 96799 M79.674 Pain of to e of left foot 1826161410 91810 M79.675 Tinea pedis 1321917 B35. 3 The patient was educated why and how the fungal infection evolved in their feet and the patient was given informatio n regarding how to prevent further infection. The patient was told to keep feet dry and change socks. The patient was told to be careful with old shoes and excessive sweating. The patient was educated regarding both OTC and prescripti on treatments .-continue ketoconazo le 2% cream prn Bilateral atherosclerosis of arteries of lower limbs [id number] 3283090 I70.203 The patient was educated about the importance of exercise, diet and the need to protect their feet in order to prevent injury or ulceration .-per patient had zander and arterial duplex in October, awaiting fax of results Hammer toe 904105658 M20 .41 M20.42 The patient was educated regarding how to mechanical ly stabilize their deformity. The patient was given education about shoe recommenda tions specific for the condition. The patient was educated about custom orthotics and how appropriat e shoes and orthotics can prevent further worsening of the deformity. The patient was educated about how bad shoe habits can worsen the condition. NSAIDS, P.T., injections and other conservati ve treatments were discussed. Both surgical and non surgical treatments were discussed, but conservati ve options were emphasized . Localized edema 57651023 4 R60.0 [id number] NILA CABRERA [facility] [address] [place] [address] 03/09/2023 10:59:23 03/10/2023 12:40:26 Depressive disorder 67307225 F32.A doing better on amitriptyl ine. sleep improved by cutting out soda- advised counseling -Patient was educated on his prescribed medication s, rationale for medication s, dosing indication s, adverse reactions, black box warning, dosing indication s, SE (e.g., decreased libido, weight gain, gynecomast ia, and galactorrh ea) and the risks and benefits.- Call center with questions/ concerns. Go to ER or call 911 for crisis (e.g., suicidal behaviors, suicidal ideations, intent or plan emerge). Additional ly, patient has suicide hotline #.- f/u one month- call with questions Essential hypertension 19022257 I10 Saw cardiology and told no appoitnmen t needed until 2024. His BP elevated today but states always normal at home 120-130/80 's. He will check at home this week as elevated in office today/no changes to medication s. Advised to check BP regularly with a goal of <140/90, if BP consistent ly >140/90, advised to contact clinic Discussed DASH diet Advised 30 minutes of exercise minimum daily Advised tobacco, alcohol, caffeine all increase BP Morbid obesity 338579813 E66.01 BMI 41 advised patient he should be working out/moving more at home [id number] CLAUDE ALFARO DPM [facility] ts [address] [place] [address] 05/03/2023 13:46:00 05/04/2023 07:51:32 Neuropathy due to diabetes mellitus 451354085 E11.42 Patient was educated about the systemic risks of diabetes and importance of proper glucose control, dangers of neuropathy and loss of gift of pain and risk stratifica tion and exam frequency. Patient was educated on high pressure areas including risks and offloading solutions. Reviewed with patient proper foot care instructio ns and daily self-exami nation and monitoring of the feet-per patient is scheduled to obtain diabetic shoes in late january 2023 Onychomycosis 404323206 B35.1 Foot callus 554835672 L8 4 Pain of to e of right foot 1907047642 15056 M79.674 Pain of to e of left foot 2133461373 11605 M79.675 Tinea pedis 8455909 B35. 3 The patient was educated why and how the fungal infection evolved in their feet and the patient was given informatio n regarding how to prevent further infection. The patient was told to keep feet dry and change socks. The patient was told to be careful with old shoes and excessive sweating. The patient was educated regarding both OTC and prescripti on treatments .-continue ketoconazo le 2% cream prn Bilateral atherosclerosis of arteries of lower limbs 2214071010 8683451 I70.203 The patient was educated about the importance of exercise, diet and the need to protect their feet in order to prevent injury or ulceration .-per patient had zander and arterial duplex in October 2022 Hammer toe 046759781 M20 .41 M20.42 The patient was educated regarding how to mechanical ly stabilize their deformity. The patient was given education about shoe recommenda tions specific for the condition. The patient was educated about custom orthotics and how appropriat e shoes and orthotics can prevent further worsening of the deformity. The patient was educated about how bad shoe habits can worsen the condition. NSAIDS, P.T., injections and other conservati ve treatments were discussed. Both surgical and non surgical treatments were discussed, but conservati ve options were emphasized . Localized edema 87741487 4 R60.0 [id number] NILA CABRERA [facility] [address] [place] [address] 07/29/2023 09:16:43 07/29/2023 10:31:49 Essential hypertension 25419237 I10 Saw cardiology and told no appoitnmen t needed until 2024. His BP elevated today but states always normal at home 120-130/80 's. He will check at home this week as elevated in office today.no changes to medication s. Advised to check BP regularly with a goal of <140/90, if BP consistent ly >140/90, advised to contact clinic Discussed DASH diet Advised 30 minutes of exercise minimum daily Advised tobacco, alcohol, caffeine all increase BP Type 2 pat betes mellitus 65818723 E11.9 controlled A1C 6.0% (01/2023) 5.8% (07/2022) 6.1% (12/2021) 6.3% (02/2021)6 .3 (08/2020 )6.0 % (09/2019) alb/cr: WNL ps v23: 08/2016pneu monia: prevnar 20 (03/2022)ey e exam: 01/2022 crown vision, normalstat in: carmelitacandi aroldo santiago: 81mg Hyperlipidemia 94651990 E78.5 discussed continuing medication , keep eating balanced meals, watching carbs and sweets including drinks Depressive disorder 7328 9007 F32.A doing better on amitriptyl ine. sleep improved by cutting out soda. will send refills- advised counseling -Patient was educated on his prescribed medication s, rationale for medication s, dosing indication s, adverse reactions, black box warning, dosing indication s, SE (e.g., decreased libido, weight gain, gynecomast ia, and galactorrh ea) and the risks and benefits.- Call center with questions/ concerns. Go to ER or call 911 for crisis (e.g., suicidal behaviors, suicidal ideations, intent or plan emerge). Additional ly, patient has suicide hotline #.- f/u one month- call with questions Smoker [id number] F17.200 smoking <1/2 ppd. wants to quit. wants patches.perea s smoked since age 16 (40 years) Colonoscopy declined [id number] 73622 Z53.20 declines [id number] CLAUDE ALFARO DPM [facility] [address] [place] [address] 08/30/2023 15:51:47 09/12/2023 12:52:09 Neuropathy due to diabetes mellitus 323495919 E11.42 Patient was educated about the systemic risks of diabetes and importance of proper glucose control, dangers of neuropathy and loss of gift of pain and risk stratifica tion and exam frequency. Patient was educated on high pressure areas including risks and offloading solutions. Reviewed with patient proper foot care instructio ns and daily self-exami nation and monitoring of the feet-per patient is scheduled to obtain diabetic shoes in late january 2023 Onychomycosis 377561600 B35.1 Foot callus 123095426 L8 4 Pain of to e of right foot 8074333715 30008 M79.674 Pain of to e of left foot 0229260783 05679 M79.675 Tinea pedis 6239885 B35. 3 The patient was educated why and how the fungal infection evolved in their feet and the patient was given informatio n regarding how to prevent further infection. The patient was told to keep feet dry and change socks. The patient was told to be careful with old shoes and excessive sweating. The patient was educated regarding both OTC and prescripti on treatments .-continue ketoconazo le 2% cream prn Bilateral atherosclerosis of arteries of lower limbs 7708063399 8533532 I70.203 The patient was educated about the importance of exercise, diet and the need to protect their feet in order to prevent injury or ulceration .-per patient had zander and arterial duplex in October 2022 Hammer toe 075274294 M20 .41 M20.42 The patient was educated regarding how to mechanical ly stabilize their deformity. The patient was given education about shoe recommenda tions specific for the condition. The patient was educated about custom orthotics and how appropriat e shoes and orthotics can prevent further worsening of the deformity. The patient was educated about how bad shoe habits can worsen the condition. NSAIDS, P.T., injections and other conservati ve treatments were discussed. Both surgical and non surgical treatments were discussed, but conservati ve options were emphasized . Localized edema 65605017 4 R60.0 [id number] NILA CABRERA [facility] [address] [place] [address] 11/01/2023 09:15:38 11/01/2023 09:32:39 Liver enzymes level above reference range 840335085 R74.01 repeat cmp [id number] CLAUDE ALFARO DPM [facility] [address] [address] 12/09/2023 09:47:04 12/09/2023 12:20:52 Neuropathy due to diabetes mellitus 016641754 E11.42 Patient was educated about the systemic risks of diabetes and importance of proper glucose control, dangers of neuropathy and loss of gift of pain and risk stratifica tion and exam frequency. Patient was educated on high pressure areas including risks and offloading solutions. Reviewed with patient proper foot care instructio ns and daily self-exami nation and monitoring of the feet-per patient is scheduled to obtain diabetic shoes in late january 2023 Onychomycosis 072268295 B35.1 Foot callus 165442237 L8 4 Pain of to e of right foot 1485451500 39974 M79.674 Pain of to e of left foot 6134513345 82994 M79.675 Tinea pedis 4299455 B35. 3 The patient was educated why and how the fungal infection evolved in their feet and the patient was given informatio n regarding how to prevent further infection. The patient was told to keep feet dry and change socks. The patient was told to be careful with old shoes and excessive sweating. The patient was educated regarding both OTC and prescripti on treatments .-continue ketoconazo le 2% cream prn Bilateral atherosclerosis of arteries of lower limbs 5541849908 9606697 I70.203 The patient was educated about the importance of exercise, diet and the need to protect their feet in order to prevent injury or ulceration .-per patient had zander and arterial duplex in October 2022 Hammer toe 893959646 M20 .41 M20.42 The patient was educated regarding how to mechanical ly stabilize their deformity. The patient was given education about shoe recommenda tions specific for the condition. The patient was educated about custom orthotics and how appropriat e shoes and orthotics can prevent further worsening of the deformity. The patient was educated about how bad shoe habits can worsen the condition. NSAIDS, P.T., injections and other conservati ve treatments were discussed. Both surgical and non surgical treatments were discussed, but conservati ve options were emphasized . Localized edema 36546007 4 R60.0 [id number] NILA CABRERA [facility] [address] [place] [address] 03/02/2024 09:14:34 03/02/2024 09:50:32 Essential hypertension 91868150 I10 Saw cardiology and told no appoitnmen t needed until 2024. His BP elevated today but states always normal at home 120-130/80 's. He will check at home this week as elevated in office today.no changes to medication s. Advised to check BP regularly with a goal of <140/90, if BP consistent ly >140/90, advised to contact clinic Discussed DASH diet Advised 30 minutes of exercise minimum daily Advised tobacco, alcohol, caffeine all increase BP Type 2 pat betes mellitus 45267979 E11.9 controlled medication s: Metformin qd A1C 6.8 % (02/2024) 6.0% (01/2023) 5.8% (07/2022) 6.1% (12/2021) 6.3% (02/2021)6 .3 (08/2020 )6.0 % (09/2019) alb/cr: WNL ps v23: 08/2016pneu monia: prevnar 20 (03/2022)ey e exam: need recordstat in: carmelitacandi jack, ulisesa spirin: 81mg Hyperlipidemia 06197155 E78.5 discussed continuing medication , keep eating balanced meals, watching carbs and sweets including drinks Depressive disorder 8327 9007 F32.A doing better on amitriptyl ine. sleep improved by cutting out soda. will send refills when needed.- advised counseling -Patient was educated on his prescribed medication s, rationale for medication s, dosing indication s, adverse reactions, black box warning, dosing indication s, SE (e.g., decreased libido, weight gain, gynecomast ia, and galactorrh ea) and the risks and benefits.- Call center with questions/ concerns. Go to ER or call 911 for crisis (e.g., suicidal behaviors, suicidal ideations, intent or plan emerge). Additional ly, patient has suicide hotline #.- f/u one month- call with questions Smoker [id number] F17.200 smoking <1/2 ppd.has smoked since age 16 (40 years) Colonoscopy declined 307 [id number] 90996 Z53.20 declines Hyperuricemia 44819564 E 79.0 check uric acid Administra tion of influenza vaccine 10258929 Z23 Patient would like flu shot today. Impacted c erumen of bilateral ears 5416529368 008101 H61.23 b/l impacted cerumenhe passed out while getting them cleaned in urgent caref/u for leaning in office [id number] NILA CABRERA [facility] [address] [place] [address] 04/26/2024 13:51:26 04/26/2024 14:34:49 Impacted cerumen of bilateral ears 6216057281 156980 H61.23 b/l impacted cerumen cleaned todaystill c/o of hearing loss left ear Hearing loss 53999526 H9 1.93 patient states hearing loss most notable on left side Obesity 943004134 E66.9 Health Concerns Section Related Observation LastModified by Organization Detai ls LastModified Time None Recorded Concern Status LastModified by Organization Details LastModified Time None Recorded Advance Directives Directive None Recorded Payers Encounter Date Sequence Insurance Name Policy Number Policy Porras Covered Member ID Porras Member ID Guarantor Name 11/01/2023 1 [facility] ON OR AFTER 09/19/20 (MEDICAID REPLACEMENT - HMO) Teodoro Membreno [id number] Teodoro Almazan Haseeb 12/09/2023 1 [facility] ON OR AFTER 20 (MEDICAID REPLACEMENT - HMO) Teodoro Membreno [id number] Teodoro Tha Membreno 03/02/2024 1 [facility] ON OR AFTER 09/19/20 (MEDICAID REPLACEMENT - HMO) Teodoro Membreno [id number] Teodoro Membreno 04/26/2024 1 [facility] ON OR AFTER 09/19/20 (MEDICAID REPLACEMENT - HMO) Teodoro Membreno [id number] Teodoro Membreno Notes Date Note Type Note Provider Name and Address Organization Details Recorded Time 4 text/html here for repat labs after elevated liver enzymes states he is doing well. he does not drink. takes medications as prescribed. NILA CABRERA Attn: Accounting,[address] [place], [address], [facility] 11/01/2023 09:31:25 4 text/html Patient presents today for evaluation and treatment of nail deformities as well as generalized foot care. The patient states their nails are uncomfortable. The patient has been unable to provide self care due to the severe nature of the deformity and their medical condition(s). The patient is receiving medically necessary foot care in order to prevent further problems as well as to relieve irritation and discomfort. Patient relates a history of diabetes and cannot recall last blood glucose CLAUDE ALFARO DPM [address] [place], [address], [facility] 12/09/2023 10:31:00 4 text/html Teodoro is a 58 YO M pmhx of DM2, htn presents today with a new chestnut director broadcast (hope) for labs and refills eye exam: 04/2023?He has no complaints today. Does state he fainted while getting his ears cleaned. they touched my eardrum and it did not feel good. declines colon screeningcardiology f/u in 2024. BP at home normal per patient.smoking: smoked since age of 16 , down to 1/4 ppd. has not quit.wants flu shot today. NILA CABRERA Attn: Accounting,[address] [facility], [place], [address], [facility] 03/02/2024 10:15:53 5 text/html here for ear cleaning NILA CABRERA Attn: Accounting,[address] [facility], [place], [address], [place] 04/27/2024 09:51:52
--- OUTSIDE RECORDS SUMMARY | 2024-06-06 15:37 | XMS_ITS | Encounter Summary ---
Author Organization [facility] Address formerly [facility] [place] [address] Care Team Providers Care Professor Of Physical Education Name Role Phone Rupali Dumas PA-C Primary Care Provider + Sarah Penn MD Unavailable [phone] Vielka Abernathy PA-C Primary Care Provider [phone] Encounter Details Date Type Department Care Team (Late st Contact Info) Description 06/18/2017 [facility] at [address] [address] Ronny Mtz MA Social History Tobacco Use Types Packs/Day Years Used Date Smoking Tobacco: Every Day Cigarettes Last attempted to quit: 03/26/2011 Smokeless Tobacco: Never Alcohol Use Standard Drinks/Week Comments No 0 [...] file Not on file Not on file documented as of this encounter Plan of Treatment Not on file documented as of this encounter Procedures Procedure Name Priority Date/Time Associated Diagnosis Comments PROSTATE SPECIFIC ANTIGEN,TOTAL Routine 02/23/2017 LIPID PANEL Routine 08/25/2016 HEMOGLOBIN, GLYCOSYLATED Routine 08/25/2016 documented in this encounter Results * PROSTATE SPECIFIC ANTIGEN,TOTAL (02/23/2017) PSA 1.5 02/23/2017 [facility] Final Result * LIPID PANEL (08/25/2016) CHOLESTEROL 169 HDL 49 TRIGLYCERIDES 137 LDL (CALCULATED) 93 08/25/2016 [facility] Final Result * HEMOGLOBIN, GLYCOSYLATED (08/25/2016) HGB A1C 6.0 08/25/2016 [facility] Final Result documented in this encounter Visit Diagnoses Not on filedocumented in this encounter Care Teams Professor Of Physical Education Relationship Specialty Start Date End Date Rupali Dumas PA-C [address] [place] [address] PCP - General FAMILY PRACTICE 02/09/17 03/08/19 Vielka Abernathy PA-C [address] [place] [address] PCP - General NURSE PRACTITIONER 03/09/[address] [facility]. [facility] [address] [place] [address] [place] [employer] Specialist CARDIOVASCULAR DISEASE 02/09/17 documented as of this encounter
--- OUTSIDE RECORDS SUMMARY | 2024-06-06 15:37 | XMS_ITS | Referral Summary ---
Author Organization [facility] [address] Address [address] [place] [address] Care Team Providers Care Satellite Manager Name Role Phone Vielka Abernathy Primary Care Provider + Allergies Active Allergy Reactions Criticality Noted Date Comments Venom-Honey Bee Anaphylaxis High 10/16/2020 Medications allopurinoL (ZYLOPRIM) 300 mg tablet Take 300 mg by mouth daily 10/15/2020 Active amLODIPine (NORVASC) 10 mg tablet Take 10 mg by mouth daily 10/15/2020 Active carvediloL (COREG) 6.25 mg tablet Take 6.25 mg by mouth 2 (two) times a day 10/15/2020 Active cetirizine (ZyrTEC) 10 mg tablet Take 10 mg by mouth daily 10/15/2020 Active EPINEPHrine 0.3 mg/0.3 mL auto-injection syringe 08/12/2020 Active gabapentin (NEURONTIN) 300 mg capsule Take 300 mg by mouth 3 (three) times a day 10/15/2020 Active hydrALAZINE (APRESOLINE) 25 mg tablet Take 25 mg by mouth 2 (two) times a day 10/15/2020 Active losartan (COZAAR) 100 mg tablet Take 100 mg by mouth daily 10/15/2020 Active metFORMIN (GLUCOPHAGE) 500 mg tablet Take 500 mg by mouth daily 10/15/2020 Active pravastatin (PRAVACHOL) 40 mg tablet Take 40 mg by mouth daily 10/15/2020 Active omega-3 fatty acids 1,000 mg capsule Take by mouth daily Active melatonin 5 mg tablet Take 5 mg by mouth daily Active multivitamin capsule Take 1 capsule by mouth daily Active amitriptyline (ELAVIL) 25 mg tablet 03/09/2022 Active aspirin 81 mg enteric coated tablet TAKE 1 TABLET BY MOUTH DAILY 30 tablet 3 02/16/2023 Active Active Problems No known active problems Social History Tobacco Use Types Packs/Day Years Used Date Smoking Tobacco: Every Day Cigarettes Smokeless Tobacco: Never Tobacco Cessation:Ready to Q uit: Not Asked; Counseling Given: Not Answered Personal Safety Answer Date Recorded Getting School Help Needed Not on file 03/22 Sex and Gender Information Value Date Recorded Sex Assigned at Not on file Legal Sex Male 8:17 AM CDT Gender Identity Not on file Sexual Orientation Not on file Last Filed Vital Signs Vital Sign Reading Time Taken Comments Blood Pressure 128/72 03/18/2022 10:55 AM PAD MACHINE FEEDER Pulse 80 03/18/2022 10:55 AM PAD MACHINE FEEDER Temperature - - Respiratory Rate - - Oxygen Saturation 96% 03/18/2022 10:55 AM PAD MACHINE FEEDER Inhaled Oxygen Concentration - - Weight 109.3 kg (241 lb) 03/18/2022 10:55 AM PAD MACHINE FEEDER Height 162.6 cm (5' 4 ) 03/18/2022 10:55 AM PAD MACHINE FEEDER Body Mass Index 41.37 03/18/2022 10:55 AM PAD MACHINE FEEDER Plan of Treatment Not on file Insurance [id number] [id number] Care Teams Satellite Manager Relationship Specialty Start Date End Date Vielka Abernathy PA PCP - General Physician Fax Machine Operator 09/20/20
--- OUTSIDE RECORDS SUMMARY | 2024-06-06 15:37 | XMS_ITS | Clinical Summary ---
Author Organization [facility] [address] Address [address] [place] [address] Care Team Providers Care Operations Inspector Name Role Phone Vielka Abernathy Primary Care [...] Active Active Problems No known active problems Medical History Medical History Date Comments Hyperlipidemia Diabetes mellitus (HCC) Anemia Hypertension Depression GERD (gastroesophageal reflux disease) Arthritis Family History Medical History Relation Name Comments Diabetes Father Hypertension Father Diabetes Mother Hypertension Mother Relation Name Status Comments Father Mother Social History Tobacco Use Types Packs/Day Years [...] on file Sexual Orientation Not on file Obstetrics History Last Filed Vital Signs Vital Sign Reading Time Taken Comments Blood Pressure 128/72 03/18/2022 10:55 AM STERILIZATION TECH Pulse 80 03/18/2022 10:55 AM STERILIZATION TECH Temperature - - Respiratory Rate - - Oxygen Saturation 96% 03/18/2022 10:55 AM STERILIZATION TECH Inhaled Oxygen Concentration - - Weight 109.3 kg (241 lb) 03/18/2022 10:55 AM STERILIZATION TECH Height 162.6 cm (5' 4 ) 03/18/2022 10:55 AM STERILIZATION TECH Body Mass Index 41.37 03/18/2022 10:55 AM STERILIZATION TECH Plan of Treatment Health Maintenance Due Date Last Done Comments Colon Cancer Screening-Colonoscopy 1965 Depression Screening 1965 Hepatitis C Screening 1965 Prostate Cancer Screening-PSA 1965 DTaP/Tdap/Td Vaccine (1 - Tdap) 05/19/1974 Hepatitis B Screening 05/19/1981 Regular Well Visit/Exam 18-64 05/19/1981 Zoster Vaccine (1 of 2) 05/19/2013 Pneumococcal vaccine <65 (2 of 2 - PCV) 08/25/2017 08/25/2016 Influenza Vaccine (#1) 2023 9, 02/24/2018, 01/28/2017, Additional history exists Insurance [facility] Care Teams Operations Inspector Relationship Specialty Start Date End Date Vielka Abernathy PA PCP - General Physician Car Sealer 09/20/20
== END 2024-06-06 13:52 | disposition home or self-care (01) ==
LOC: ANHAUDIO 13:52
PROVIDERS: PCP Physician Assistant; Visit Provider Physician Assistant
DX: H90.3 Sensorineural hearing loss, bilateral (principal)
CPT/HCPCS: 92557; 92567